=== PATIENT | female | born 1930 | race Caucasian/White ===

== ENCOUNTER 2016-08-04 08:28 | Day surgery (SDC) | payer BC ==
[2016-08-03 10:25] VITALS: BMI 20.9
[~2016-08-04 08:28] MED LIST: ACETAMINOPHEN 325 MG TABLET (FP) PO PRN
[2016-08-04] MEDS ORDERED: FLURBIPROFEN 0.03% OPHTH SOLN 2.5 ML BOTTLE ONE (08:39)
[2016-08-04] MEDS ORDERED: CYCLOPENTOLATE HCL 1% OPHTH SOLN 2 ML BOTTLE ONE (08:40)
[2016-08-04] MEDS ORDERED: TROPICAMIDE 1% OPHTH SOLN 15 ML BOTTLE ONE (08:40)
[2016-08-04] MEDS ORDERED: CIPROFLOXACIN 0.3% EYE DROPS 5 ML BOTTLE ONE (08:40)
[2016-08-04] MEDS ORDERED: PHENYLEPHRINE 2.5% OPHTH SOLN 15 ML BOTTLE ONE (08:40)
[2016-08-04] MEDS: CIPROFLOXACIN HCL 0.3% OPHTH 2.5ML BOTTLE OP SCH ×3 (08:45→08:55)
[2016-08-04] MEDS: CYCLOPENTOLATE HCL 1% OPHTH SOLN 2 ML BOTTLE OP SCH ×3 (08:45→08:55)
[2016-08-04] MEDS: PHENYLEPHRINE 2.5% OPHTH SOLN 15 ML BOTTLE OP SCH ×3 (08:45→08:55)
[2016-08-04] MEDS: TROPICAMIDE 1% OPHTH SOLN 15 ML BOTTLE OP SCH ×3 (08:45→08:55)
[2016-08-04] MEDS: FLURBIPROFEN 0.03% OPHTH SOLN 2.5 ML BOTTLE OP SCH ×3 (08:50→09:21)
[2016-08-04 09:10] VITALS: TEMP 97.9
[2016-08-04] MEDS ORDERED: MIDAZOLAM HCL 2 MG/2 ML SINGLE DOSE VIAL ONE (09:45)
[2016-08-04] MEDS ORDERED: LIDOCAINE HCL 2% JELLY (5 ML/TUBE) TP ONE (09:50)
[2016-08-04] MEDS ORDERED: POVIDONE-IODINE 5% OPHTHALMIC PREP 30 ML SOLUTION OD ONE (10:15)
[2016-08-04] MEDS ORDERED: EPINEPHrine/PF 1 MG/1 ML (1:1,000) AMPULE IO ONE (10:24)
[2016-08-04] MEDS ORDERED: TRYPAN BLUE 0.5 ML DISP.SYRIN IO ONE (10:24)
[2016-08-04] MEDS ORDERED: CHONDROITIN SU A/HYALUR SOD 1 KIT IO ONE (10:24)
[2016-08-04] MEDS ORDERED: BSS (NA/CA/MG/K) BALANCED SALT SOLUTION OPHTH SOLN 15 ML BOTTLE OD ONE (10:24)
[2016-08-04] MEDS ORDERED: LIDOCAINE HCL 1% PRESERVATIVE FREE - 30ML VIAL IO ONE (10:24)
[2016-08-04 11:49] VITALS: BP 147/75; PULSE 95
--- NOTE | 2016-08-04 12:13 | OP ---
DATE OF OPERATION: 08/04/2016 SURGEON: Jeri Barber M.D. PREOPERATIVE DIAGNOSIS: Mature cataract, right eye. POSTOPERATIVE DIAGNOSIS: Mature cataract, right eye. PROCEDURE: Phacoemulsification of right cataract with capsular staining with Trypan blue and posterior chamber intraocular lens implantation, lens used [id number], 22.0 Diopter power, Serial No. [id number] ANESTHESIA: Topical MAC. COMPLICATIONS: None. DESCRIPTION OF PROCEDURE: The patient was brought to the operating room and correctly identified along with the operative site as well as correct intraocular lens reardon. She was then prepped and draped in the usual sterile fashion including 5% Betadine solution in the conjunctival sac and an eyelid drape. An eyelid speculum was then placed into the right eye. The cataract was inspected and noted to be white with a very poor red reflex. A paracentesis port was created. Intracameral Lidocaine 1% was given, approximately 0.5 mL. Then, an air bubble was placed in the anterior chamber, and the capsule was then stained with Trypan blue. The air bubble was removed, the remaining was preservative-free lidocaine. Viscoelastic was injected to inflate the anterior chamber, and a temporal clear corneal wound was created. A continuous circular capsulorrhexis was performed. The nucleus was then hydro-dissected with BSS. The cortex was noted to be very milky. The nucleus was then removed using phacoemulsification via fvolni-rot-tvgnypc approach. Once again there was very little residual epinuclear/cortical material, but care was made to crack the nucleus safely despite this. The remaining cortical material was irrigated and aspirated from the eye. Viscoelastic was injected to inflate the capsular bag. The lens was injected into the capsular bag. Viscoelastic was removed from the eye. All wounds were then tested and found to be watertight, and no further suture was placed. The intraocular lens was noted to be well centered and covered by the anterior capsular border. Topical vancomycin was given. The eye was patched and shielded, and the patient was discharged from the operating room in stable condition JERI BARBER M.D. [id number] MTDD
== END 2016-08-04 11:49 | disposition home or self-care (01) ==
LOC: JASU-SURG 08:28
PROVIDERS: ATTEND Ophthalmology
PROC: 08RJ3JZ Replacement of Right Lens with Synthetic Substitute, Percutaneous Approach (ICD-10-PCS; principal; 2016-08-04 10:00)
DX: H25.091 Other age-related incipient cataract, right eye (principal); H18.891 Other specified disorders of cornea, right eye

== ENCOUNTER 2016-08-10 11:21 | Emergency (ER) | payer BC ==
[2016-08-10 11:38] VITALS: BMI 20.9
--- NOTE | 2016-08-10 11:45 | PDOC ---
History of Present Illness - General History Source: Patient, Family, Old Records, Primary Care Provider Exam Limitations: No Limitations - History of Present Illness Initial Comments: 08/10/16 12:43 The patient is a 86 year old female presenting with her family, with a significant past medical history of chronic low back pain, who presents to the emergency department with exacerbation of her lower back pain. The patient was sent in by her PMD for evaluation. She describes her pain as localized in the lower back, moderate in severity, without radiation. She states that her pain is exacerbated when she moves around. The patient denies chest pain, shortness of breath, headache and dizziness. Denies fever, chills, nausea, vomit, diarrhea and constipation. Denies dysuria, frequency, urgency and hematuria. Allergies: Oxycodone, penicillin, fentanyl patch Past surgical history: Small bowel obstruction, KYPHOPLASTY X2, appendectomy and left hip surgery Social history: No alcohol, tobacco or drug use reported PMD - Dr. Segura <Vaughn Saxena - Last Filed: 08/10/16 13:23> <Vy Guadarrama - Last Filed: 08/10/16 13:56> - General Chief Complaint: Back Pain Stated Complaint: BACK PAIN Time Seen by Provider: 08/10/16 11:35 Past History <Vaughn Saxena - Last Filed: 08/10/16 13:23> - Past Medical History Anemia: Yes (pernicious) COPD: Yes (USES OXYGEN AT HOME 2L) HTN: Yes (LOW BLOOD PRESSURE) Hypercholesterolemia: Yes - Surgical History Abdominal Surgery: Yes (sbo) Appendectomy: Yes Cardiac Surgery: No Cholecystectomy: No Lung Surgery: No Neurologic Surgery: Yes (KYPHOPLASTY X2) Orthopedic Surgery: Yes (L. Hip) - Psycho/Social/Smoking Cessation Hx Anxiety: No Suicidal Ideation: No Smoking History: Former smoker Have you smoked in the past 12 months: No Number of Cigarettes Smoked Daily: 5 If you are a former smoker, when did you quit?: 2014 Information on smoking cessation initiated: No 'Breaking Loose' booklet given: 09/13/13 Hx Alcohol Use: No Drug/Substance Use Hx: No Substance Use Type: None Hx Substance Use Treatment: No <Vy Guadarrama - Last Filed: 08/10/16 13:56> - Past Medical History Allergies/Adverse Reactions: Allergies Allergy/AdvReac Type Severity Reaction Status Date / Time oxycodone Allergy Intermediate PASSING OUT Verified 08/10/16 11:40 Penicillins Allergy Verified 08/10/16 11:40 FENTANYL PATCH Allergy Intermediate PASSING OUT Uncoded 08/10/16 11:40 Home Medications: Ambulatory Orders Acetaminophen [Tylenol .Regular Strength -] 650 mg PO Q6H PRN #100 tablet Cholecalciferol (Vitamin D3) [Vitamin D3] 1,000 unit PO DAILY #0 09/21/13 Cyanocobalamin Vit B-12 Inj. [Vitamin B12 Injection -] 1,000 mcg IJ MONTHLY #0 09/21/13 Folic Acid - 1 mg PO DAILY #0 09/21/13 Omeprazole [Prilosec] 40 mg PO DAILY #0 09/21/13 Albuterol 2.5/Ipratropium 0.5 [Duoneb -] 1 amp NEB QIDR amp 05/09/15 Loperamide HCl [Imodium -] 2 mg PO Q8H PRN #0 capsule 05/09/15 Amlodipine Besylate 5 mg PO DAILY 08/03/16 Spironolactone 25 mg PO DAILY 08/03/16 Ketorolac Trometh 0.5% Oph Katarina [Acular (Do Not Stock)] 1 drop OD QID 08/10/16 Ofloxacin 0.3% Ophth Soln [Ocuflox 0.3% Eye Drops -] 1 drop OD QID 08/10/16 Oxycodone HCl/Acetaminophen [Percocet 5-325 mg Tablet] 1 tab PO Q6H PRN #12 tablet MDD 4 tabs 08/10/16 Prednisolone 1% Ophthalmic [Pred Forte 1% -] 1 drop OD QID 08/10/16 Review of Systems - Review of Systems Able to Perform ROS?: Yes Comments:: 08/10/16 12:43 GENERAL/CONSTITUTIONAL: No fever or chills. No weakness. HEAD, EYES, EARS, NOSE AND THROAT: No change in vision. No ear pain or discharge. No sore throat. CARDIOVASCULAR: No chest pain or shortness of breath RESPIRATORY: No cough, wheezing, or hemoptysis. GASTROINTESTINAL: No nausea, vomiting, diarrhea or constipation. GENITOURINARY: No dysuria, frequency, or change in urination. MUSCULOSKELETAL: +Lower back pain. No joint or muscle swelling or pain. No neck pain. SKIN: No rash NEUROLOGIC: No headache, vertigo, loss of consciousness, or change in strength/ sensation. ENDOCRINE: No increased thirst. No abnormal weight change HEMATOLOGIC/LYMPHATIC: No anemia, easy bleeding, or history of blood clots. ALLERGIC/IMMUNOLOGIC: No hives or skin allergy. HEENTM: Yes: Nose Pain <Vaughn Saxena - Last Filed: 08/10/16 13:23> *Physical Exam - Vital Signs Last Vital Signs Temp Pulse Resp BP Pulse Ox 98 F 84 18 159/76 98 08/10/16 11:33 08/10/16 11:33 08/10/16 11:33 08/10/16 11:08/10/16 12:00 - Physical Exam Comments: 08/10/16 12:43 GENERAL: Awake, alert, and fully oriented, in no acute distress HEAD: No signs of trauma, normocephalic, atraumatic EYES: PERRLA, EOMI, sclera anicteric, conjunctiva clear ENT: Auricles normal inspection, hearing grossly normal, nares patent, oropharynx clear without exudates. Moist mucosa NECK: Normal ROM, supple, no lymphadenopathy, JVD, or masses LUNGS: No distress, speaks full sentences, clear to auscultation bilaterally HEART: Regular rate and rhythm, normal S1 and S2, no murmurs, rubs or gallops, peripheral pulses normal and equal bilaterally. ABDOMEN: Soft, nontender, normoactive bowel sounds. No guarding, no rebound. No masses MUSCULOSKELETAL: +Tenderness at L2-L3, wearing a lidadorm patch, underneath no skin chagnes. EXTREMITIES: Normal inspection, Normal range of motion, no edema. No clubbing or cyanosis. NEUROLOGICAL: Cranial nerves II through XII grossly intact. Normal speech, no focal sensorimotor deficits SKIN: Warm, Dry, normal turgor, no rashes or lesions noted. <Vaughn Saxena - Last Filed: 08/10/16 13:23> - Vital Signs Last Vital Signs Temp Pulse Resp BP Pulse Ox 98 F 84 18 159/76 100 08/10/16 11:33 08/10/16 11:33 08/10/16 11:33 08/10/16 11:33 08/10/16 11:33 <Vy Guadarrama - Last Filed: 08/10/16 13:56> ED Treatment Course - LABORATORY CBC & Chemistry Diagram: 08/10/16 12:25 08/10/16 12:25 - RADIOLOGY Radiograph Interpretation: 08/10/16 13:23 Lumbar sacral X-Ray Reviewed by: Dr. Ho Impression: Stable compression deformity of L1 with cement, Stable compression deformity of L3. Concavity of the endplates of L4 without specific evidence of acute fracture. - Medications Given in the ED: ED Medications Discontinued Medications Generic Name Dose Route Start Last Admin Trade Name Freq PRN Reason Stop Dose Admin Oxycodone/Acetaminophen 1 combo 08/10/16 11:57 08/10/16 12:09 Percocet 5/325 - PO 08/10/16 11:58 1 combo ONCE ONE Administration <Vaughn Saxena - Last Filed: 08/10/16 13:23> - LABORATORY CBC & Chemistry Diagram: 08/10/16 12:25 08/10/16 12:25 <yV Guadarrama - Last Filed: 08/10/16 13:56> Medical Decision Making - Medical Decision Making 08/10/16 13:39 D/w Dr. Segura, will arrange for outpatient MRI, so that patient can have it in upright MRI (she is unable to lie flat for MRI or CT). 08/10/16 13:46 Left VM for her son to pick her up. I have written rx for percocet. Will cont to monitor while awaiting callback. 08/10/16 13:56 Received callback from son. He will pick her up shortly. <Vy Guadarrama - Last Filed: 08/10/16 13:56> *DC/Admit/Observation/Transfer - Attestations Scribe Attestion: 08/10/16 12:44 Documentation prepared by Vaughn Saxena, acting as medical dermatologist for Vy Guadarrama MD <Vaughn Saxena - Last Filed: 08/10/16 13:23> - Discharge Dispostion Admit: No <Vy Guadarrama - Last Filed: 08/10/16 13:56> Diagnosis at time of Disposition: Back pain Qualifiers: Back pain location: low back pain Chronicity: acute Back pain laterality: midline Sciatica presence: without sciatica Qualified Code(s): M54.5 - Low back pain - Discharge Dispostion Disposition: HOME Condition at time of disposition: Improved - Prescriptions Prescriptions: Oxycodone HCl/Acetaminophen [Percocet 5-325 mg Tablet] 1 tab PO Q6H PRN #12 tablet MDD 4 tabs PRN Reason: Severe Pain - Referrals Referrals: Colin Segura MD [Primary Care Provider] - - Patient Instructions Printed Discharge Instructions: DI for Low Back Pain
[2016-08-10] MEDS ORDERED: OXYCODONE/APAP 5/325MG COMBO TABLET PO ONE (11:57)
[2016-08-10] MEDS ORDERED: OXYCODONE/APAP 5/325MG COMBO TABLET ONE (12:03)
[2016-08-10] MEDS ORDERED: OFLOXACIN 0.3% OPHTHALMIC SOLUTION 5 ML BOTTLE OD SCH (12:15)
[2016-08-10] MEDS ORDERED: prednisoLONE ACETATE 1% OPHTH SUSP 5 ML BOTTLE OD SCH (12:15)
[2016-08-10 12:41] LABS: BASOPHIL 0.4 % (0-2.0); EOSINOPHIL 0.3 % (0-4.5); MCH 30.6 pg (25.7-33.7); MCHC 33.4 g/dl (32.0-36.0); MEAN CELL VOLUME 91.6 fl (80-96); MEAN PLT VOLUME 8.1 fl (7.5-11.1); NEUTROPHILS 76.8 % (42.8-82.8); PLATELET COUNT 248 K/MM3 (134-434); RDW 14.5 % (11.6-15.6); WHITE BLOOD COUNT 6.7 K/mm3 (4.0-10.0)
[2016-08-10 13:07] LABS: ALBUMIN 3.5 g/dl (3.4-5.0); ALK PHOS 68 U/L (45-117); ANION GAP 8 (8-16); BILIRUBIN,TOTAL 0.5 mg/dL (0.2-1.0); CALCIUM 8.8 mg/dL (8.5-10.1); CO2 29 mmol/L (21-32); COCKROFT - GAULT 48.1865; CREATININE 0.6 mg/dL (0.55-1.02); GLUCOSE,RANDOM 103 mg/dL (74-106); SGOT/AST 18 U/L (15-37); SGPT/ALT 18 U/L (12-78); TOT PROT 7.2 g/dl (6.4-8.2)
[2016-08-10 14:47] VITALS: BP 123/59; PULSE 73; TEMP 98
== END 2016-08-10 14:47 | disposition home or self-care (01) ==
LOC: JER 11:21
DX: M54.5 Low back pain (principal); J44.9 Chronic obstructive pulmonary disease, unspecified; Z99.81 Dependence on supplemental oxygen; Z87.891 Personal history of nicotine dependence; E78.00 Pure hypercholesterolemia, unspecified; D64.9 Anemia, unspecified
CPT/HCPCS: 36415; 72100-TC; 80053; 85025; 99284-25

== ENCOUNTER 2016-09-30 08:35 | Day surgery (SDC) | payer BC ==
[2016-09-29 12:37] VITALS: BMI 20.9
[~2016-09-30 08:35] MED LIST changes: -ACETAMINOPHEN 325 MG TABLET (FP) PO PRN; +CLINDAMYCIN PHOSPHATE 300 MG/2 ML VIAL IVPB ONE
[2016-09-30] MEDS ORDERED: LIDOCAINE HCL 2% 100 MG/5 ML DISP.SYRIN ONE (09:00)
[2016-09-30] MEDS ORDERED: PROPOFOL 20 ML ONE ×5 (09:00→10:06)
[2016-09-30] MEDS ORDERED: SUCCINYLCHOLINE CHLORIDE 200 MG/10 ML VIAL ONE (09:00)
[2016-09-30] MEDS ORDERED: ROCURONIUM BROMIDE 50 MG/5 ML VIAL ONE (09:04)
[2016-09-30] MEDS ORDERED: MIDAZOLAM HCL 2 MG/2 ML SINGLE DOSE VIAL ONE (10:24)
[2016-09-30] MEDS ORDERED: BUPIVACAINE HCL/PF 0.25% (2.5MG/ML) 10 ML VIAL ONE ×2 (10:44→11:08)
[2016-09-30] MEDS ORDERED: CLINDAMYCIN PHOSPHATE 300 MG/2 ML VIAL IVPB ONE (10:46)
[2016-09-30] MEDS ORDERED: CLINDAMYCIN PHOSPHATE 600 MG/4 ML VIAL ONE (11:04)
[2016-09-30] MEDS ORDERED: BUPIVACAINE HCL/PF 0.25% (2.5MG/ML) 10 ML VIAL IJ ONE (11:05)
[2016-09-30 14:53] VITALS: BP 140/70; PULSE 73
[2016-09-30 18:17] VITALS: TEMP 98.4
== END 2016-09-30 14:10 | disposition home or self-care (01) ==
LOC: JASU-SURG 08:35
PROVIDERS: ATTEND Anesthesiology
PROC: 0QU03JZ Supplement Lumbar Vertebra with Synthetic Substitute, Percutaneous Approach (ICD-10-PCS; 2016-09-30)
PROC: 0QS03ZZ Reposition Lumbar Vertebra, Percutaneous Approach (ICD-10-PCS; principal; 2016-09-30 10:00)
DX: M80.88XA Other osteoporosis with current pathological fracture, vertebra(e), initial encounter for fracture (principal)
CPT/HCPCS: 76000-TC; 94760

== ENCOUNTER 2016-12-15 18:08 | Inpatient (IN) | payer BC ==
--- NOTE | 2016-12-15 19:38 | PDOC ---
History of Present Illness <Kevin Whittington - Last Filed: 12/16/16 01:31> - General History Source: Patient Exam Limitations: No Limitations - History of Present Illness Initial Comments: 12/16/16 00:10 The patient is a 86 year old female, with a significant past medical history of arthritis, chronic lower back pain, multiple compression fractures, hypertension , hyperlipidemia, and pancreatic ulcers, who presents to the emergency department complaining of lower back pain exacerbation for approximately 6 days. The patient reports she was reaching to dust something several days ago and shortly after she began to experience worsening lower back pain. The patient describes her pain as a sharp pressure, which radiates into her right lower abdomen. Per patient's son, he was going to bring her to her pain management physician, but the patient was in so much pain that he could not get her to the car. Patient reports she spends the majority of her day in a wheelchair due to pain, but attends PT. Patient is on approximately 2 percocets daily, with minimal relief. The patient states she feels as if she has another fracture. She denies any nausea, vomiting, diarrhea, or constipation. She denies any chest pain, shortness of breath, diaphoresis, or palpitations. She denies any dysuria, hematuria, frequency, or urgency. She denies any fever, chills, headache, or dizziness. Per records, patient has had a stable compression deformity of L1, L3, and L4. Allergies: Penicillins, oxycodone, [fentanyl patch] Past Surgical History: Kyphoplasty of L1/L3/L4, Appendectomy, Left Hip replacement, Small bowel obstruction Social History: Former Smoker PCP: Dr. Segura <Gonzalo Evans - Last Filed: 12/16/16 01:44> - General Chief Complaint: Back Pain Stated Complaint: PAIN Time Seen by Provider: 12/15/16 19:38 Past History - Past Medical History Anemia: Yes (pernicious) COPD: Yes (USES OXYGEN AT HOME 2L) HTN: Yes (LOW BLOOD PRESSURE) Hypercholesterolemia: Yes - Surgical History Abdominal Surgery: Yes (sbo years ago) Appendectomy: Yes Cardiac Surgery: No Cholecystectomy: No Lung Surgery: No Neurologic Surgery: Yes (KYPHOPLASTY X2) Orthopedic Surgery: Yes (L. Hip replacement pinning/plate) - Psycho/Social/Smoking Cessation Hx Anxiety: No Suicidal Ideation: No Smoking History: Former smoker Have you smoked in the past 12 months: No Number of Cigarettes Smoked Daily: 5 If you are a former smoker, when did you quit?: 2014 Information on smoking cessation initiated: No 'Breaking Loose' booklet given: 09/13/13 Hx Alcohol Use: No Drug/Substance Use Hx: No Substance Use Type: None Hx Substance Use Treatment: No <Kevin Whittington - Last Filed: 12/16/16 01:31> <Gonzalo Evans - Last Filed: 12/16/16 01:44> - Past Medical History Allergies/Adverse Reactions: Allergies Allergy/AdvReac Type Severity Reaction Status Date / Time oxycodone Allergy Intermediate PASSING OUT Verified 12/15/16 18:16 Penicillins Allergy Verified 12/15/16 18:16 FENTANYL PATCH Allergy Intermediate PASSING OUT Uncoded 12/15/16 18:16 Home Medications: Ambulatory Orders Acetaminophen [Tylenol .Regular Strength -] 650 mg PO Q6H PRN #100 tablet Cholecalciferol (Vitamin D3) [Vitamin D3] 1,000 unit PO DAILY #0 09/21/13 Cyanocobalamin Vit B-12 Inj. [Vitamin B12 Injection -] 1,000 mcg IJ MONTHLY #0 09/21/13 Folic Acid - 1 mg PO DAILY #0 09/21/13 Albuterol 2.5/Ipratropium 0.5 [Duoneb -] 1 amp NEB QIDR amp 05/09/15 Amlodipine Besylate 5 mg PO DAILY 08/03/16 Spironolactone 25 mg PO DAILY 08/03/16 Oxycodone HCl/Acetaminophen [Percocet 5-325 mg Tablet] 1 tab PO Q6H PRN #12 tablet MDD 4 tabs 08/10/16 Omeprazole [Prilosec] 20 mg PO DAILY 12/15/16 Review of Systems - Review of Systems Able to Perform ROS?: Yes Comments:: 12/16/16 00:11 CONSTITUTIONAL: No fever, no chills, no fatigue EYES: No visual changes ENT: No ear pain, no sore throat CARDIOVASCULAR: No chest pain, no palpitations RESPIRATORY: No cough, no SOB GI: Yes: +mild abdominal pain secondary to back pain. No no nausea, no vomiting , no constipation, no diarrhea GENITOURINARY: No dysuria, no frequency, no hematuria MUSKULOSKELETAL: Yes: +lower back pain. Nono joint pain, no myalgias SKIN: No rash NEURO: No headache <Gonzalo Evans - Last Filed: 12/16/16 01:44> *Physical Exam - Vital Signs Last Vital Signs Temp Pulse Resp BP Pulse Ox 98.2 F 86 20 163/79 100 12/15/16 18:17 12/15/16 18:17 12/15/16 18:17 12/15/16 18:17 12/15/16 18:17 <Kevin Whittington - Last Filed: 12/16/16 01:31> - Vital Signs Last Vital Signs Temp Pulse Resp BP Pulse Ox 98.2 F 86 20 163/79 100 12/15/16 18:17 12/15/16 18:17 12/15/16 18:17 12/15/16 18:17 12/15/16 18:17 - Physical Exam Comments: 12/16/16 00:49 CONSTITUTIONAL: Well-appearing; Awake and alert. Frail appearing in moderate distress HEAD: Normocephalic; atraumatic EYES: PERRL; EOM intact ENMT: External appears normal; normal oropharynx NECK: Supple; non-tender; no cervical lymphadenopathy CARD: 2/6 systolic murmur. Normal S1, S2; no rubs or gallops RESP: Normal chest excursion with respiration; breath sounds clear and equal bilaterally; no wheezes, rhonchi, or rales BACK: Significant scoliosis. Point tenderness at T11-L4. ABD: Soft, non-distended; non-tender; no palpable organomegaly, no palpable hernias EXT: +1 Pitting edema bilaterally, left greater than right. Distal pulses intact SKIN: Warm, dry, no rash NEURO: Awake, alert, and fully oriented. Cranial nerves II through XII grossly intact. Normal speech. No focal neurological deficits. Neurovascularly intact distally. Gait deferred. <EvansTrinityyousif - Last Filed: 12/16/16 01:44> ED Treatment Course - LABORATORY CBC & Chemistry Diagram: 12/15/16 20:00 12/15/16 20:00 <Kevin Whittington - Last Filed: 12/16/16 01:31> - LABORATORY CBC & Chemistry Diagram: 12/15/16 20:00 12/15/16 20:00 - ADDITIONAL ORDERS Additional order review: Laboratory Results 12/15/16 12/15/16 20:00 20:00 INR 1.16 H Sodium 136 Potassium 3.8 Chloride 97 L Carbon Dioxide 30 Anion Gap 9 BUN 16 D Creatinine 0.4 L D Creat Clearance w eGFR > 60 Random Glucose 127 H D Calcium 9.3 Total Bilirubin 0.4 AST 18 ALT 17 Alkaline Phosphatase 67 Total Protein 6.8 Albumin 3.4 12/15/16 20:00 RBC 4.09 MCV 92.4 MCHC 33.5 RDW 14.1 MPV 8.2 Neutrophils % 75.7 Lymphocytes % 13.7 Monocytes % 9.8 Eosinophils % 0.5 Basophils % 0.3 - RADIOLOGY Radiograph Interpretation: 12/16/16 00:51 EXAM: CT lumbar spine INTERPRETED BY: Dr. Hogue REVIEWED BY: Dr. Whittington IMPRESSION: Multiple compression fractures with vertebroplasty, as described above. There is mild bulge of L4 posterior/superior margin resulting in mild to moderate canal stenosis. Over distended gallbladder with a 1.5 cm stone at the level of the neck. Partially included cystic density in the lower pelvis likely part of the urinary bladder. Distal sigmoid moderate amount of fecal residue suggestive of constipation/impaction - Medications Given in the ED: ED Medications Discontinued Medications Generic Name Dose Route Start Last Admin Trade Name Freq PRN Reason Stop Dose Admin Hydromorphone HCl 0.5 mg 12/15/16 19:55 12/15/16 20:10 Dilaudid Injection - IVPB 12/15/16 19:56 0.5 mg ONCE ONE Administration Hydromorphone HCl 0.5 mg 12/15/16 20:36 12/15/16 21:27 Dilaudid Injection - IVPB 12/15/16 20:37 0.5 mg ONCE ONE Administration Hydromorphone HCl 0.5 mg 12/15/16 21:54 12/15/16 22:18 Dilaudid Injection - IVPB 12/15/16 21:55 0.5 mg ONCE ONE Administration <Gonzalo Evans - Last Filed: 12/16/16 01:44> Medical Decision Making - Medical Decision Making 12/16/16 01:31 Patient is a frail-appearing 86-year-old female with history of the severe osteoporosis, status post multiple compression fractures of thoracic and lumbar vertebra with kyphoplasty presents to the ER with severe intractable low back pain that is nonradiating and is not effectively controlled by oral narcotic pain medication prescribed by pain management. In the ER, patient is in moderate distress, requiring numerous doses of IV dilouded for pain control. CT of LS spine reveals chronic compression fractures of multiple vertebra with kyphoplasty cement; distended gallbladder with a 1.5 cm stone is noted (patient' s symptoms are not consistent with acute cholecystitis at this time); there is no evidence of cauda equina or cord compression at this time. Patient will require admission for intractable pain, requiring IV narcotics. Will admit. <Kevin Whittington - Last Filed: 12/16/16 01:31> - Medical Decision Making 12/16/16 00:14 First call placed to Dr. Segura at 00:14. Awaiting call back from Dr. Cruz. <Gonzalo Evans - Last Filed: 12/16/16 01:44> *DC/Admit/Observation/Transfer - Discharge Dispostion Admit: Yes - Attestations Physician Attestion: 12/16/16 01:31 The documentation was prepared by the scribe under my direct supervision. I have reviewed the documentation which correctly represents the findings, medical decision-making and critical action taken by me. <Kevin Whittington - Last Filed: 12/16/16 01:31> - Attestations Scribe Attestion: 12/16/16 00:11 Documentation prepared by Gonzalo Evans, acting as medical billing specialist for Kevin Whittington MD. <Gonzalo Evans - Last Filed: 12/16/16 01:44> Diagnosis at time of Disposition: Intractable low back pain, Compression fracture - Referrals Referrals: Colin Segura MD [Primary Care Provider] -
[2016-12-15] MEDS ORDERED: HYDROmorphone HCL CARPU-JECT 1 MG/1 ML DISP.SYRIN IVPB ONE ×3 (19:55→21:54)
[2016-12-15] MEDS ORDERED: HYDROmorphone HCL CARPU-JECT 1 MG/1 ML DISP.SYRIN ONE ×3 (20:02→22:00)
[2016-12-15 20:29] LABS: BASOPHIL 0.3 % (0-2.0); EOSINOPHIL 0.5 % (0-4.5); MCHC 33.5 g/dl (32.0-36.0); MEAN CELL VOLUME 92.4 fl (80-96); MEAN PLT VOLUME 8.2 fl (7.5-11.1); NEUTROPHILS 75.7 % (42.8-82.8); PLATELET COUNT 235 K/MM3 (134-434); RDW 14.1 % (11.6-15.6); WHITE BLOOD COUNT 5.8 K/mm3 (4.0-10.0)
[2016-12-15 20:51] LABS: INR 1.16 (0.82-1.09); PROTHROMBIN TIME (PATIENT) 12.8 SEC (9.98-11.88)
[2016-12-15 21:02] LABS: ALBUMIN 3.4 g/dl (3.4-5.0); ALK PHOS 67 U/L (45-117); ANION GAP 9 (8-16); BILIRUBIN,TOTAL 0.4 mg/dL (0.2-1.0); CALCIUM 9.3 mg/dL (8.5-10.1); CO2 30 mmol/L (21-32); CREATININE 0.4 mg/dL (0.55-1.02); GLUCOSE,RANDOM 127 mg/dL (74-106); SGOT/AST 18 U/L (15-37); TOT PROT 6.8 g/dl (6.4-8.2)
[2016-12-15 21:09] LABS: SGPT/ALT 17 U/L (12-78)
[2016-12-16] MEDS ORDERED: HYDROmorphone HCL CARPU-JECT 1 MG/1 ML DISP.SYRIN IVPB ONE (00:36)
[2016-12-16] MEDS ORDERED: HYDROmorphone HCL CARPU-JECT 1 MG/1 ML DISP.SYRIN ONE (00:45)
[2016-12-16] MEDS ORDERED: ACETAMINOPHEN 325 MG TABLET (FP) PO PRN (02:24)
[2016-12-16] MEDS: ENOXAPARIN NA (PORCINE) 40 MG/0.4 ML DISP.SYRIN SQ SCH ×3 (03:10→21:56)
[2016-12-16] MEDS ORDERED: ENOXAPARIN NA (PORCINE) 40 MG/0.4 ML DISP.SYRIN SQ ONE (03:11)
--- NOTE | 2016-12-16 04:21 | PN ---
Teaching Attending Note Name of Resident: Paula Kramer ATTENDING PHYSICIAN STATEMENT I saw and evaluated the patient. I reviewed the resident's note and discussed the case with the resident. I agree with the resident's findings and plan as documented. SUBJECTIVE: 86 year old female that presents complaining of intractible lower back pain x 6 days triggered by leaning over to sweep floors. She has a history of chronic back pain and kyphoplasty and is seen on outpatient basis by pain management physician . Her regular prescribed narcotic medications did not aleviate the pain so she presented for further evaluation . Pain is 10/10 and is radiating to the right side of her abdomen PMH chronic back pain Lumbar spine compression fractures and kyphoplasty Arthritis HTN Hyperlipidemia Appendectomy OBJECTIVE: Vital Signs Temperature 98.2 F 12/15/16 18:17 Pulse Rate 83 12/16/16 03:19 Respiratory Rate 18 12/16/16 03:19 Blood Pressure 148/81 12/16/16 03:19 O2 Sat by Pulse Oximetry (%) 98 12/16/16 03:19 HEENT - Perrl CVS S1S@ WNL no mrg RS CTA b/l ABD mild lower abdominal tenderness no rebound , scales neg EXT LLE edema non pitting up to the level of knee CMP Sodium 136 mmol/L (136-145) 12/15/16 20:00 Potassium 3.8 mmol/L (3.5-5.1) 12/15/16 20:00 Chloride 97 mmol/L (98-107) L 12/15/16 20:00 Carbon Dioxide 30 mmol/L (21-32) 12/15/16 20:00 Anion Gap 9 (8-16) 12/15/16 20:00 BUN 16 mg/dL (7-18) D 12/15/16 20:00 Creatinine 0.4 mg/dL (0.55-1.02) L D 12/15/16 20:00 Creat Clearance w eGFR > 60 (>60) 12/15/16 20:00 Random Glucose 127 mg/dL (74-106) H D 12/15/16 20:00 Calcium 9.3 mg/dL (8.5-10.1) 12/15/16 20:00 Total Bilirubin 0.4 mg/dL (0.2-1.0) 12/15/16 20:00 AST 18 U/L (15-37) 12/15/16 20:00 ALT 17 U/L (12-78) 12/15/16 20:00 Alkaline Phosphatase 67 U/L (45-117) 12/15/16 20:00 Total Protein 6.8 g/dl (6.4-8.2) 12/15/16 20:00 Albumin 3.4 g/dl (3.4-5.0) 12/15/16 20:00 The gallbladder is markedly over distended with a gallbladder neck stone measuring 1.4 cm. Partially included moderate amount of fecal residue in the distal sigmoid colon suggestive of constipation. Rule out impaction. Partially included cystic density in the lower pelvis measuring 4.5 cm that may be part of the urinary bladder. There are a few diverticula in the sigmoid colon without evidence of acute diverticulitis. Air-fluid level in the cecum suggestive of liquefied stool Multiple compression fractures with vertebroplasty. There is mild bulge of L4 posterior/superior margin resulting in mild to moderate canal stenosis. Over distended gallbladder with a 1.5 cm stone at the level of the neck. Partially included cystic density in the lower pelvis likely part of the urinary bladder. Distal sigmoid moderate amount of fecal residue suggestive of constipation/ impaction ASSESSMENT AND PLAN: 1. Intractible lumbar back painand canal stenosis- not relieved with narcotics IV in the ED - hospitalize for pain control , IV dilaudid for brakthrough pain - c/w home meds - baclofen PRN 2. Abnormal imaging of gallblader suggestive of possible biiary obstruction - no evidence of acute cholecystitis at this time ( on CT ) - repeat LFT - if abnormal , or has RUQ pain will need to obtain [facility] EF to evaluate degree of obstruction - if needed will call surgery 3. LLE swelling - will obtain dopplers to R/O DVT 4. DVT PPX - heparin sc
--- NOTE | 2016-12-16 05:16 | HP ---
CHIEF COMPLAINT: back pain PCP: Dr. Oreilly HISTORY OF PRESENT ILLNESS: 86yo F with PMH of chronic lower back pain, arthritis, osteoporosis with multiple compression fractures, and COPD presents c/o acute on chronic back pain. Pain began worsening 6 days ago after pt bent over to dust. Pt took her usual home pain medication of Percocet BID, but this did not relieve her pain. Pt describes pain as sharp, exacerbated with movement, radiating into lateral RLQ of abdomen. Pt reported that she thought she had another compression fracture. Pt denies chest pain, SOB, dizziness. ER course was notable for: (1) CT Lumbar Spine (2) Dilaudid 0.5mg IVPB x 4, Percocet 5/325 PO x 1 (3) CXR pending PAST MEDICAL HISTORY: arthritis osteoporosis multiple compression fractures with kyphoplasty chronic back pain COPD with 2L O2 via nasal cannula HTN hyperlipidemia pancreatic ulcer pernicious anemia PAST SURGICAL HISTORY: kyphoplasty of L1/L3/L4 2 mo ago Left eye cataract surgery 2 mo ago Left hip replacement abdominal surgery for SBO appendectomy Social History: Smoking: former smoker -> 5 cigarettes / day, quit in 2014 Alcohol: none Drugs: none Allergies oxycodone Allergy (Intermediate, Verified 12/15/16 18:16) PASSING OUT Penicillins Allergy (Verified 12/15/16 18:16) FENTANYL PATCH Allergy (Intermediate, Uncoded 12/15/16 18:16) PASSING OUT HOME MEDICATIONS: Home Medications Medication Instructions Recorded Acetaminophen [Tylenol .Regular 650 mg PO Q6H PRN #100 tablet 09/21/13 Strength -] Cholecalciferol (Vitamin D3) 1,000 unit PO DAILY #0 09/21/13 [Vitamin D3] Cyanocobalamin Vit B-12 Inj. 1,000 mcg IJ MONTHLY #0 09/21/13 [Vitamin B12 Injection -] Folic Acid - 1 mg PO DAILY #0 09/21/13 Albuterol 2.5/Ipratropium 0.5 1 amp NEB QIDR amp 05/09/15 [Duoneb -] Amlodipine Besylate 5 mg PO DAILY 08/03/16 Spironolactone 25 mg PO DAILY 08/03/16 Oxycodone HCl/Acetaminophen 1 tab PO Q6H PRN #12 tablet MDD 4 08/10/16 [Percocet 5-325 mg Tablet] tabs Omeprazole [Prilosec] 20 mg PO DAILY 12/15/16 REVIEW OF SYSTEMS CONSTITUTIONAL: Absent: fever, chills, diaphoresis, malaise HEENT: Absent: throat pain, ear pain, eye pain, visual changes CARDIOVASCULAR: Absent: chest pain, palpitations, irregular heart rate RESPIRATORY: Absent: cough, shortness of breath, wheezing, stridor GASTROINTESTINAL: Present: lateral RLQ pain 2/2 back pain Absent: abdominal distension, nausea, vomiting, diarrhea, constipation GENITOURINARY: Absent: dysuria, frequency, hematuria MUSCULOSKELETAL: Present: lower back pain Absent: myalgia, arthralgia, joint swelling, neck pain SKIN: Absent: rash, itching, pallor NEUROLOGIC: Absent: headache, focal weakness or paresthesias PHYSICAL EXAMINATION Last Vital Signs Temp Pulse Resp BP Pulse Ox 98.2 F 83 18 148/81 98 12/15/16 18:17 12/16/16 03:19 12/16/16 03:19 12/16/16 03:19 12/16/16 03:19 GENERAL: Awake, alert, and fully oriented, frail appearing elderly woman in moderate distress. HEAD: Normal with no signs of trauma. EYES: Extraocular movements intact, sclera anicteric, conjunctiva clear. No lid lag. EARS, NOSE, THROAT: Moist mucous membranes. NECK: Supple, trachea midline. LUNGS: difficult to auscultate 2/2 pt's restricted movement related to her back pain. Breath sounds equal, clear to auscultation bilaterally. No wheezes, and no crackles. No accessory muscle use. HEART: Regular rate and rhythm, normal S1 and S2 without murmur, rub or gallop. ABDOMEN: (-) scales's sign. Soft, nontender, not distended, normoactive bowel sounds, no guarding, no rebound, no masses. MUSCULOSKELETAL: Pt's movement is severely restricted 2/2 her back pain. Difficult to assess muscle strength. BLE 4/5 muscle strength. LOWER EXTREMITIES: +1 pitting edema to Left LE. Augustin LE warm, with intact pedal pulses. No calf tenderness. NEUROLOGICAL: Augustin achilles reflex intact. Normal speech. PSYCHIATRIC: Cooperative. Good eye contact. Appropriate mood and affect. SKIN: Warm, dry, normal turgor, no rashes or lesions noted. Laboratory Last Values WBC 5.8 K/mm3 (4.0-10.0) 12/15/16 20:00 RBC 4.09 M/mm3 (3.60-5.2) 12/15/16 20:00 Hgb 12.7 GM/dL (10.7-15.3) 12/15/16 20:00 Hct 37.8 % (32.4-45.2) 12/15/16 20:00 MCV 92.4 fl (80-96) 12/15/16 20:00 MCH 31.0 pg (25.7-33.7) 12/15/16 20:00 MCHC 33.5 g/dl (32.0-36.0) 12/15/16 20:00 RDW 14.1 % (11.6-15.6) 12/15/16 20:00 Plt Count 235 K/MM3 (134-434) 12/15/16 20:00 MPV 8.2 fl (7.5-11.1) 12/15/16 20:00 Neutrophils % 75.7 % (42.8-82.8) 12/15/16 20:00 Lymphocytes % 13.7 % (8-40) 12/15/16 20:00 Monocytes % 9.8 % (3.8-10.2) 12/15/16 20:00 Eosinophils % 0.5 % (0-4.5) 12/15/16 20:00 Basophils % 0.3 % (0-2.0) 12/15/16 20:00 INR 1.16 (0.82-1.09) H 12/15/16 20:00 Sodium 136 mmol/L (136-145) 12/15/16 20:00 Potassium 3.8 mmol/L (3.5-5.1) 12/15/16 20:00 Chloride 97 mmol/L (98-107) L 12/15/16 20:00 Carbon Dioxide 30 mmol/L (21-32) 12/15/16 20:00 Anion Gap 9 (8-16) 12/15/16 20:00 BUN 16 mg/dL (7-18) D 12/15/16 20:00 Creatinine 0.4 mg/dL (0.55-1.02) L D 12/15/16 20:00 Creat Clearance w eGFR > 60 (>60) 12/15/16 20:00 Random Glucose 127 mg/dL (74-106) H D 12/15/16 20:00 Calcium 9.3 mg/dL (8.5-10.1) 12/15/16 20:00 Total Bilirubin 0.4 mg/dL (0.2-1.0) 12/15/16 20:00 AST 18 U/L (15-37) 12/15/16 20:00 ALT 17 U/L (12-78) 12/15/16 20:00 Alkaline Phosphatase 67 U/L (45-117) 12/15/16 20:00 Total Protein 6.8 g/dl (6.4-8.2) 12/15/16 20:00 Albumin 3.4 g/dl (3.4-5.0) 12/15/16 20:00 IMAGIN12/15/16 CT Lumbar Spine without contrast reveals multiple compression fractures with vertebroplasty, mild bulge of L4 vertebral body resulting in mild-to- moderate canal stenosis. Over distended gallbladder with a 1.5cm gallstone at the level of the neck noted. 12/16/16 CXR pending. ASSESSMENT/PLAN: 86yo F with PMH of chronic lower back pain, arthritis, osteoporosis with multiple compression fractures, and COPD presents c/o acute on chronic back pain admitted to Med-Surg Observation for intractable back pain. 1) intractable back pain - likely 2/2 arthritic/osteoporotic changes to spine resulting in canal stenosis vs cholecystitis - (-) scales sign, pain associated with movement and not 2/2 eating fatty meals - Dilaudid 1mg IVPB q4hr prn for breakthrough pain over her Percocet - cont. home med of Percocet 5/325 q6hr prn - Baclofen 10mg PO TID prn for muscle spasm pain - incentive spirometry 2) oxycodone allergy - likely not a true allergy as pt tolerates Percocet 3) Left LE edema - f/u Duplex US 4) HTN - likely 2/2 increased pain - cont. home med of Amlodipine 5mg PO daily 5) COPD - cont. home meds of Duoneb 1 amp neb QID - cont. 2L O2 via nasal cannula 6) Advanced Directives - Pt wants to be made DNR (she does not want chest compressions done for fear of additional fractures) - Day Team to f/u 7) FEN - Fluids: encourage po fluids - Electrolytes: wnl, cont. to monitor - Nutrition: regular diet 8) Prophylaxis - Lovenox 40mg SQ BID for DVT prophylaxis Visit type - Emergency Visit Emergency Visit: Yes ED Registration Date: 12/16/16 Care time: The patient presented to the Emergency Department on the above date and was hospitalized for further evaluation of their emergent condition. - New Patient This patient is new to me today: Yes Date on this admission: 12/16/16 - Critical Care Critical Care patient: No
[2016-12-16 05:46] VITALS: BMI 21.2
[2016-12-16] MEDS: ALBUTEROL SO4 2.5/IPRATROPIUM 0.5 INH SOL 3 ML VIAL.NEB. NEB SCH ×4 (06:26→23:33)
[2016-12-16] MEDS ORDERED: BACLOFEN 10 MG TABLET (FP) PO PRN (06:39)
[2016-12-16] MEDS ORDERED: DOCUSATE SODIUM 100 MG CAPSULE (FP) PO PRN (06:39)
[2016-12-16] MEDS: HYDROmorphone HCL CARPU-JECT 1 MG/1 ML DISP.SYRIN IVPB PRN ×2 (06:55→21:55)
[2016-12-16 07:41] LABS: MCH 30.3 pg (25.7-33.7); MCHC 32.8 g/dl (32.0-36.0); MEAN CELL VOLUME 92.3 fl (80-96); MEAN PLT VOLUME 7.7 fl (7.5-11.1); PLATELET COUNT 231 K/MM3 (134-434); RDW 14.1 % (11.6-15.6); WHITE BLOOD COUNT 5.5 K/mm3 (4.0-10.0)
[2016-12-16 08:00] LABS: ANION GAP 7 (8-16); CALCIUM 8.6 mg/dL (8.5-10.1); CO2 33 mmol/L (21-32); CREATININE 0.4 mg/dL (0.55-1.02); GLUCOSE,RANDOM 108 mg/dL (74-106)
[2016-12-16 08:10] LABS: INR 1.18 (0.82-1.09)
[2016-12-16] MEDS ORDERED: ENOXAPARIN NA (PORCINE) 40 MG/0.4 ML DISP.SYRIN SQ SCH (10:00)
[2016-12-16] MEDS: PANTOPRAZOLE 20 MG TABLET (FP) PO SCH (10:25)
[2016-12-16] MEDS: FOLIC ACID 1 MG TABLET (FP) PO SCH (10:25)
[2016-12-16] MEDS: CHOLECALCIFEROL (VITAMIN D3) 1,000 UNIT TABLET (FP) PO SCH (10:25)
[2016-12-16] MEDS: amLODIPine BESYLATE 5 MG TABLET (FP) PO SCH (10:25)
[2016-12-16] MEDS: oxyCODONE HCL 5 MG TABLET PO PRN ×2 (10:25→16:46)
[2016-12-16] MEDS: SPIRONOLACTONE 25 MG TABLET (FP) PO SCH (10:25)
[2016-12-16] MEDS: ACETAMINOPHEN 325 MG TABLET (FP) PO PRN ×2 (10:26→16:46)
--- NOTE | 2016-12-16 10:54 | EKG ---
Test Reason : Blood Pressure : / mmHG Vent. Rate : 077 BPM Atrial Rate : 077 BPM P-R Int : 094 ms QRS Dur : 156 ms QT Int : 428 ms P-R-T Axes : 000 -74 057 degrees QTc Int : 484 ms POOR DATA QUALITY, INTERPRETATION MAY BE ADVERSELY AFFECTED SINUS RHYTHM WITH SHORT CA WITH PREMATURE SUPRAVENTRICULAR COMPLEXES LEFT AXIS DEVIATION RIGHT BUNDLE BRANCH BLOCK ABNORMAL ECG WHEN COMPARED WITH ECG OF 24-JUL-2016 09:46, PREMATURE VENTRICULAR COMPLEXES ARE NO LONGER PRESENT PREMATURE SUPRAVENTRICULAR COMPLEXES ARE NOW PRESENT CA INTERVAL HAS DECREASED Confirmed by STANISLAW INFANTE MD ([id number]) on 12/16/2016 10:54:35 AM Referred By: Confirmed By:STANISLAW INFANTE MD
--- NOTE | 2016-12-16 12:05 | PN ---
Progress Note (short form) - Note Progress Note: PULMONARY CONSULTATION DICTATED 12/16/16 IMP LLE DVT LIKELY PROVOKED ADVANCED COPD ON O2 ACUTE ON CHRONIC BACK PAIN MULTIPLE COMPRESSION FXS S/P KYPHOPLASTY HTN PLAN LOVENOX ELIQUIS INHALED BRONCHODILATORS NASAL O2 PAIN MEDS PAIN MANAGEMENT CONSULT DR HUTTON Problem List - Problems (1) Compression fracture Code(s): NAY8256 - (2) Intractable low back pain Code(s): M54.5 - LOW BACK PAIN (3) Back pain Code(s): M54.9 - DORSALGIA, UNSPECIFIED Qualifiers: Back pain location: low back pain Chronicity: acute Back pain laterality: midline Sciatica presence: without sciatica Qualified Code(s ): M54.5 - Low back pain (4) COPD (chronic obstructive pulmonary disease) Code(s): J44.9 - CHRONIC OBSTRUCTIVE PULMONARY DISEASE, UNSPECIFIED Qualifiers : Emphysema type: unspecified (5) Dyspnea Code(s): R06.00 - DYSPNEA, UNSPECIFIED Qualifiers: Dyspnea type: dyspnea on exertion Qualified Code(s): R06.09 - Other forms of dyspnea (6) HTN (hypertension) Code(s): I10 - ESSENTIAL (PRIMARY) HYPERTENSION Qualifiers: Hypertension type: essential hypertension Qualified Code(s): I10 - Essential (primary) hypertension (7) Spinal stenosis Code(s): M48.00 - SPINAL STENOSIS, SITE UNSPECIFIED Qualifiers: Spinal region: lumbosacral Qualified Code(s): M48.07 - Spinal stenosis , lumbosacral region (8) DVT (deep venous thrombosis) Code(s): I82.409 - ACUTE EMBOLISM AND THOMBOS UNSP DEEP VN UNSP LOWER EXTREMITY
--- NOTE | 2016-12-16 12:34 | CONS ---
DATE OF CONSULTATION: 12/16/2016 REFERRING PHYSICIAN: Katie Gu MD HISTORY OF PRESENT ILLNESS: The patient is an 86-year-old white female known to me from previous hospitalization with a past medical history of arthritis, chronic lower back pain status post kyphoplasty a few months ago, multiple compression fractures, hypertension, advanced COPD on home O2, hyperlipidemia, history of pancreatic ulcers, who was admitted to [facility] with complaint of lower back pain of approximately 6 days. Patient states she was doing relatively well until approximately 6 days prior to admission when she started doing some cleaning and lifted her duster and felt pain in the back. She described the pain as sharp in character, went into right lower abdomen. Patient is essentially wheelchair- bound, but she attends PT at home. She denies any chest pains or palpitations, any nausea or vomiting. She does complain of shortness of breath with exertion, which is chronic. She has a history of tobacco use, approximately 1 pack per day for many years, quit 2 years ago. There is no history of occupational exposure to chemical fumes. Patient states she was admitted with the above. On admission, she stated about the pain, she was started on some analgesics. Of note, for the past 2 weeks, though, she stated she had some left lower extremity swelling. She underwent a duplex lower extremity earlier today which revealed left lower extremity DVT. She was started on anticoagulation. There is no previous history of DVT or PE in the past. PAST MEDICAL HISTORY: Again includes COPD on home O2, multiple compression fractures, status post kyphoplasty L1, L3, L4, appendectomy, history of left hip replacement, small bowel obstruction, arthritis, chronic low back pain, hypertension, hyperlipidemia, pancreatic ulcers. REVIEW OF SYSTEMS: No orthopnea. No PND. Positive back pain. No chest pain. No palpitations. No nausea. No vomiting. No hemoptysis. No abdominal pain. No lower extremity discomfort. CURRENT MEDICATIONS: Include Tylenol, Lovenox, Duo-Neb, Colace, Norvasc, Aldactone, Dilaudid, Roxicodone, Protonix, folic acid, vitamin D3. PHYSICAL EXAMINATION: General: The patient is an elderly white female, then, well-developed, awake, alert, in no acute distress. Vital signs: She is currently afebrile, blood pressure is 161/81, respiratory rate 20, O2 saturation is 98% on 2 L. HEENT: Head is normocephalic atraumatic. Neck: Supple. Heart: Regular, S1, S2. Chest: Diminished breath sounds bilaterally. Abdomen: Soft. Bowel sounds positive. Extremities: Showed swelling and erythema in left lower extremity. LABORATORIES: WBC is 5.5, hemoglobin 12.6, hematocrit 38.3, with a platelet count of 231,000. INR is 1.18. BUN 11, creatinine 0.4. Chest x-ray reveals no acute infiltrates, nor effusions. There is osteopenia. The patient is status post kyphoplasty Lumbar spine, CT showed multiple compression fractures i. There is mid bulge at L4, mild to moderate canal stenosis, no distended gallbladder, cystic density of the lower pelvis near the bladder. Duplex of the lower extremities showed extensive DVT, left lower extremity. IMPRESSION: 1. Acute deep venous thrombosis, left lower extremity, likely provoked secondary to sedentary lifestyle 2. Acute on chronic back pain. 3. Advanced chronic obstructive pulmonary disease on home O2. 4. Hypertension. PLAN: Analgesics, Lovenox, we will start Eliquis for the pain management evaluation, supplemental O2, inhaled bronchodilators. CHRISTINA HUTTON M.D. [id number] MTDD
[2016-12-16] MEDS ORDERED: POTASSIUM CHLORIDE TABS 20 MEQ TABLET.ER (FP) PO ONE (13:00)
--- NOTE | 2016-12-16 13:20 | PN ---
Teaching Attending Note Name of Resident: Orion Alfaro ATTENDING PHYSICIAN STATEMENT I saw and evaluated the patient. I reviewed the resident's note and discussed the case with the resident. I agree with the resident's findings and plan as documented. SUBJECTIVE:does not experience pain at rest. only on movement. improvement with pain regimen here. states she was trying to dust the top of her cabinets when experienced excruciating pain suddenly. denies bowel/bladder incontinence. does admit to numbness/tingling of extremities but this is chronic symptom. also admits to dysuria and urge to urinate for several days. as well as LLE pain and swelling. recently underwent kyphoplasty by automotive painter helper 2 months ago and her pain has been controlled since then. no complications from the procedure per pt. OBJECTIVE: Last Vital Signs Temp Pulse Resp BP Pulse Ox 98.2 F 89 18 161/81 99 12/15/16 18:17 12/16/16 11:20 12/16/16 05:10 12/16/16 05:10 12/16/16 11:20 General NAD, thin, frail woman CV S1 S2 RRR no murmur/rub/gallop Lungs CTA B/L no wheezing/rales/rhonchi Abdomen +suprapubic distention and tenderness Extremities LLE trace edema and calf tenderness Back +muscle spasms R lumbar area, +point tenderness. no bone point tenderness ASSESSMENT AND PLAN: 86yo F with PMH chronic low back pain s/p multiple kyphoplasty and multiple compression fractures, and COPD on 2 L NC admitted for intractable pain 1. Intractable pain- requiring high doses of dialudid for pain control. likely muscular strain from physical activity but can not r/o worsening disc herniation. consult pain management who also performed surgery to compare. cont current pain management dilaudid and muscle relaxer 2. + LLE DVT- likely provoked due to recent surgery and decreased mobility. on full dose lovenox. will convert to NOAC once confirmed no need for procedure/ intervention. counseled on risks of anticoagulation and risks of bleeding. verbalized understanding 3. Distended bladder- bladder scan >[address] catheter and check UA/UCx. will wait to treat as afebrile and no leukocytosis. will intiate abx therapy if + 4. hypokalemia- replete 5. COPD pn home O2- no signs of acute exacerbation. saturating well on home O2 6. HTN- above goal however likely due to pain. cont current managment consider increasing if needed 7. DNR
--- NOTE | 2016-12-16 13:54 | PN ---
Physical Exam: SUBJECTIVE: Patient seen and examined at bedside. States that she is having severe pain in her back and edema in her lower extremities. Pt feels numbness and tingling in her legs, and feels increased pain and back spasms when she moves. OBJECTIVE: Vital Signs Period Temp Pulse Resp BP Sys/Solares Pulse Ox Last 24 Hr 97.9 F 77-89 18-18 104-161/46-81 98-99 GENERAL: The patient is awake, alert, and fully oriented, in mild distress HEAD: Normal with no signs of trauma. EYES: PERRL, extraocular movements intact, sclera anicteric, conjunctiva clear. No ptosis. ENT: Ears normal, nares patent, oropharynx clear without exudates, moist mucous membranes. NECK: Trachea midline, supple. LUNGS: Breath sounds equal, clear to auscultation bilaterally, no wheezes, no crackles, no accessory muscle use. HEART: Regular rate and rhythm, S1, S2 without murmur, rub or gallop. ABDOMEN: mildly distended, suprapubic tenderness, normoactive bowel sounds, no guarding, no rebound, no hepatosplenomegaly, no masses. EXTREMITIES: 2+ posterior tibial pulses, warm, well-perfused, 1+ edema in lower extremities b/l. Pt strength 3/5 in lower extremities, 3-4/5 in upper extremities, sensation intact. Did not palpate spine d/t severe pain NEUROLOGICAL: Cranial nerves II through XII grossly intact. Laboratory Results - last 24 hr 12/16/16 12/16/16 12/16/16 06:00 06:00 06:00 WBC 5.5 RBC 4.15 Hgb 12.6 Hct 38.3 MCV 92.3 MCH 30.3 MCHC 32.8 RDW 14.1 Plt Count 231 MPV 7.7 INR 1.18 H Sodium 137 Potassium 3.3 L Chloride 97 L Carbon Dioxide 33 H Anion Gap 7 L BUN 11 D Creatinine 0.4 L Random Glucose 108 H Calcium 8.6 Active Medications Generic Name Dose Route Start Last Admin Trade Name Freq PRN Reason Stop Dose Admin Acetaminophen 650 mg 12/16/16 02:24 Tylenol - PO Q6H PRN BACK PAIN Acetaminophen 325 mg 12/16/16 05:55 12/16/16 10:26 Tylenol - PO 325 mg Q6H PRN Administration PAIN Albuterol/Ipratropium 1 amp 12/16/16 06:00 12/16/16 11:20 Duoneb - NEB 1 amp QIDR LILLIANA Administration Amlodipine Besylate 5 mg 12/16/16 10:00 12/16/16 10:25 Norvasc - PO 5 mg DAILY LILLIANA Administration Baclofen 10 mg 12/16/16 06:39 Lioresal - PO TID PRN BACK PAIN Cholecalciferol 1,000 unit 12/16/16 10:00 12/16/16 10:25 Vitamin D3 - PO 1,000 unit DAILY LILLIANA Administration Docusate Sodium 100 mg 12/16/16 06:39 Colace - PO BID PRN CONSTIPATION Enoxaparin Sodium 40 mg 12/16/16 22:00 Lovenox - SQ BID LILLIANA Folic Acid 1 mg 12/16/16 10:00 12/16/16 10:25 Folic Acid - PO 1 mg DAILY LILLIANA Administration Hydromorphone HCl 1 mg 12/16/16 05:49 12/16/16 06:55 Dilaudid Injection - IVPB 1 mg Q4H PRN Administration PAIN Oxycodone HCl 5 mg 12/16/16 05:55 12/16/16 10:25 Roxicodone - PO 5 mg Q6H PRN Administration PAIN Pantoprazole Sodium 20 mg 12/16/16 10:00 12/16/16 10:25 Protonix - PO 20 mg DAILY LILLIANA Administration Spironolactone 25 mg 12/16/16 10:00 12/16/16 10:25 Aldactone - PO 25 mg DAILY LILLIANA Administration ASSESSMENT/PLAN: 86 y/o F with PMH chronic lower back pain, arthritis, osteoperosis with multiple compression fractures and COPD (on 2L NC 02), who presented to the ED with acute on chronic back pain. Pt admitted to med-surg for intractable back pain. #Intractable back pain secondary to physical exertion -Pt was dusting when occurred, reached above her head and felt severe pain -pain control with dilaudid 1mg IVPB q4h PRN and percocet 5/325 -Consulted Dr. Guillaume, pain management -Pt did PT in past which helped -Continue baclofen 10mg PO TID PRN for muscle spasms #LLE edema secondary to DVT -positive DVT on sono -most likely due to immobilization and post-surgery -will change to NOAC after discussing with Dr. Guillaume if intervention needed #HTN- d/t pain -Continue amlodipine 5mg PO daily -Will increase dose if does not resolve after pain adequately treated #suprapubic tenderness d/t urinary retention -retention noted by bladder scan -F/u UA, UCx #Hypokalemia -Pt repleted with Kdur 20 mEq -Will follow levels #COPD -On 2L NC 02 -Continue Duonebs 1 amp QID F/E/N -Monitor electrolytes -Regular diet Dispo pt transferred from obs to med-surg Visit type - Emergency Visit Emergency Visit: No - New Patient This patient is new to me today: Yes Date on this admission: 12/16/16 - Critical Care Critical Care patient: No
[2016-12-16 13:56] LABS: URINE APPEARANCE CLEAR; URINE BILIRUBIN NEGATIVE (NEGATIVE); URINE BLOOD 2+ (NEGATIVE); URINE COLOR LTYELLOW; URINE GLUCOSE (UA) NEGATIVE (NEGATIVE); URINE KETONE NEGATIVE (NEGATIVE); URINE LEUK ESTERASE NEGATIVE (NEGATIVE); URINE NITRITE NEGATIVE (NEGATIVE); URINE PROTEIN NEGATIVE (NEGATIVE); URINE UROBILINOGEN NEGATIVE mg/dL (0.2-1.0)
[2016-12-17] MEDS: ALBUTEROL SO4 2.5/IPRATROPIUM 0.5 INH SOL 3 ML VIAL.NEB. NEB SCH ×4 (06:35→23:20)
[2016-12-17 07:08] LABS: MCH 30.8 pg (25.7-33.7); MEAN CELL VOLUME 93.2 fl (80-96); MEAN PLT VOLUME 8.5 fl (7.5-11.1); PLATELET COUNT 228 K/MM3 (134-434); RDW 13.9 % (11.6-15.6); WHITE BLOOD COUNT 4.6 K/mm3 (4.0-10.0)
[2016-12-17 07:36] LABS: ANION GAP 5 (8-16); CALCIUM 8.9 mg/dL (8.5-10.1); CO2 36 mmol/L (21-32); CREATININE 0.4 mg/dL (0.55-1.02); GLUCOSE,RANDOM 86 mg/dL (74-106)
[2016-12-17] MEDS: HYDROmorphone HCL CARPU-JECT 1 MG/1 ML DISP.SYRIN IVPB PRN ×2 (07:38→13:18)
[2016-12-17] MEDS: PANTOPRAZOLE 20 MG TABLET (FP) PO SCH (10:07)
[2016-12-17] MEDS: SPIRONOLACTONE 25 MG TABLET (FP) PO SCH (10:07)
[2016-12-17] MEDS: CHOLECALCIFEROL (VITAMIN D3) 1,000 UNIT TABLET (FP) PO SCH (10:07)
[2016-12-17] MEDS: ENOXAPARIN NA (PORCINE) 40 MG/0.4 ML DISP.SYRIN SQ SCH (10:07)
[2016-12-17] MEDS: FOLIC ACID 1 MG TABLET (FP) PO SCH (10:07)
[2016-12-17] MEDS: amLODIPine BESYLATE 5 MG TABLET (FP) PO SCH (10:07)
--- NOTE | 2016-12-17 11:15 | PN ---
Progress Note (short form) - Note Progress Note: PULMONARY AWAKE/ALERT LESS PAIN VSS ANICTERIC DISTANT B/L BREATH SOUNDS S1S2 BS+ SOFT NO EDEMA LABS/MEDS/NOTES/IMAGING REVIEWED IMP LLE DVT LIKELY PROVOKED ADVANCED COPD ON O2 ACUTE ON CHRONIC BACK PAIN MULTIPLE COMPRESSION FXS S/P KYPHOPLASTY HTN PLAN LOVENOX ELIQUIS INHALED BRONCHODILATORS NASAL O2 PAIN MEDS PAIN MANAGEMENT CONSULT Daria DIOR MD
--- NOTE | 2016-12-17 13:00 | PN ---
Teaching Attending Note Name of Resident: Betsy Senior ATTENDING PHYSICIAN STATEMENT I saw and evaluated the patient. I reviewed the resident's note and discussed the case with the resident. I agree with the resident's findings and plan as documented. SUBJECTIVE:continues to have pain but improved. limited mobilty due to pain and has not moved much. pt is wheelchair bound. denies CP, SOB, fever, chills, N/V/C ?D OBJECTIVE: Last Vital Signs Temp Pulse Resp BP Pulse Ox 98.7 F 80 17 131/58 98 12/17/16 10:00 12/17/16 11:02 12/17/16 10:00 12/17/16 10:12/17/16 11:02 General NAD, thin, frail woman Abdomen soft NT/ND Extremities LLE trace edema and calf tenderness Back +muscle spasms R lumbar area, +point tenderness. no bone point tenderness ASSESSMENT AND PLAN: 86yo F with PMH chronic low back pain s/p multiple kyphoplasty and multiple compression fractures, and COPD on 2 L NC admitted for intractable pain 1. Intractable pain-pain improved. still requiring IV dilaudid. states interior decorator painting evaluated her last night but there is no documentation in chart or [employer]. will place call to office. make muscle relaxer TID standing instead of prn as she is not asking for it. informed of side effects of lethargy. PT eval. pt does not want OTF states she has PT come to her house whom she has good report with. 2. + LLE DVT- likely provoked due to recent surgery and decreased mobility. switch lovenox to eliquis. do not antipate need for surgery 3. Distended bladder- franklin in place. UA negative for infection. start bladder training trials. 4. hypokalemia- replete 5. COPD pn home O2- no signs of acute exacerbation. saturating well on home O2 6. HTN- improved. cont home management 7. DNR
--- NOTE | 2016-12-17 16:28 | PN ---
Physical Exam: SUBJECTIVE: Patient seen and examined at bedside today. Pt stated that she was in a lot of pain this morning, but that it had improved this afternoon. Still having severe pain in her back, as well as burning in her lower extremities, with tingling. Denies SOB, chest pain, or dysuria. OBJECTIVE: Vital Signs Period Temp Pulse Resp BP Sys/Solares Pulse Ox Last 24 Hr 98.2 F-98.9 F 77-96 17-18 123-131/50-61 98-99 GENERAL: The patient is awake, alert, and fully oriented, in mild distress. on 2L NC HEAD: Normal with no signs of trauma. EYES: PERRL, extraocular movements intact, sclera anicteric, conjunctiva clear. No ptosis. ENT: Ears normal, nares patent, oropharynx clear without exudates, moist mucous membranes. NECK: Trachea midline, full range of motion, supple. LUNGS: Breath sounds equal, clear to auscultation bilaterally, no wheezes, no crackles, no accessory muscle use. HEART: Regular rate and rhythm, S1, S2 without murmur, rub or gallop. ABDOMEN:mild suprapubic tenderness, normoactive bowel sounds, no guarding, no rebound, no hepatosplenomegaly, no masses. EXTREMITIES: 2+ posterior tibial pulses, warm, well-perfused, no edema. Decreased ROM in lower extremities 3/5 today, lumbar spine- tender to palpation. Sensation diminished in lower extremities. NEUROLOGICAL: Cranial nerves II through XII grossly intact. Laboratory Results - last 24 hr 12/17/16 12/17/16 06:30 06:30 WBC 4.6 RBC 4.10 Hgb 12.6 Hct 38.2 MCV 93.2 MCH 30.8 MCHC 33.0 RDW 13.9 Plt Count 228 MPV 8.5 D Sodium 136 Potassium 4.1 D Chloride 95 L Carbon Dioxide 36 H Anion Gap 5 L BUN 9 Creatinine 0.4 L Random Glucose 86 D Calcium 8.9 Active Medications Generic Name Dose Route Start Last Admin Trade Name Freq PRN Reason Stop Dose Admin Acetaminophen 650 mg 12/16/16 02:24 Tylenol - PO Q6H PRN BACK PAIN Acetaminophen 325 mg 12/16/16 05:55 12/16/16 16:46 Tylenol - PO 325 mg Q6H PRN Administration PAIN Albuterol/Ipratropium 1 amp 08/24/17 06:00 12/17/16 11:03 Duoneb - NEB 1 amp QIDR LILLIANA Administration Amlodipine Besylate 5 mg 12/16/16 10:00 12/17/16 10:07 Norvasc - PO 5 mg DAILY LILLIANA Administration Apixaban 5 mg 12/17/16 22:00 Eliquis - PO BID LILLIANA Baclofen 10 mg 12/16/16 06:39 Lioresal - PO TID PRN BACK PAIN Cholecalciferol 1,000 unit 12/16/16 10:00 12/17/16 10:07 Vitamin D3 - PO 1,000 unit DAILY LILLIANA Administration Docusate Sodium 100 mg 12/16/16 06:39 Colace - PO BID PRN CONSTIPATION Folic Acid 1 mg 12/16/16 10:00 12/17/16 10:07 Folic Acid - PO 1 mg DAILY LILLIANA Administration Morphine Sulfate 2 mg 12/17/16 15:13 Morphine Injection - IVPUSH Q4H PRN PAIN Oxycodone HCl 5 mg 12/16/16 05:55 12/16/16 16:46 Roxicodone - PO 5 mg Q6H PRN Administration PAIN Pantoprazole Sodium 20 mg 12/16/16 10:00 12/17/16 10:07 Protonix - PO 20 mg DAILY LILLIANA Administration Spironolactone 25 mg 12/16/16 10:00 12/17/16 10:07 Aldactone - PO 25 mg DAILY LILLIANA Administration ASSESSMENT/PLAN: 86 y/o F with PMH chronic lower back pain, arthritis, osteoperosis with multiple compression fractures and COPD (on 2L NC 02), who presented to the ED with acute on chronic back pain. Pt admitted to med-surg for intractable back pain. #Intractable back pain secondary to physical exertion -pain control with morphine 2 mg IVP q4h PRN -Seen by Dr. Guillaume, reached out - left message at office -baclofen 10mg PO TID for muscle spasms #LLE edema secondary to DVT -positive DVT on sono -most likely due to immobilization and post-surgery -changed from lovenox to eliquis 5mg PO BID #HTN- d/t pain- controlled today -Continue amlodipine 5mg PO daily -Will increase dose if does not resolve after pain adequately treated #suprapubic tenderness d/t urinary retention -retention noted by bladder scan -UCx: negative #Hypokalemia-resolved #COPD -On 2L NC 02 -Continue Duonebs 1 amp QID F/E/N -Monitor electrolytes -Regular diet Dispo -for D/c once pain controlled and seen by PT, if no interventions needed Visit type - Emergency Visit Emergency Visit: No - New Patient This patient is new to me today: No - Critical Care Critical Care patient: No
[2016-12-17] MEDS: morphine CARPU-JECT 2 MG/1 ML DISP.SYRIN IVPUSH PRN ×2 (19:04→23:05)
[2016-12-17] MEDS: oxyCODONE HCL 5 MG TABLET PO PRN (19:05)
[2016-12-17] MEDS: BACLOFEN 10 MG TABLET (FP) PO SCH (21:05)
[2016-12-17] MEDS: APIXABAN 5 MG TABLET PO SCH (21:05)
[2016-12-18] MEDS: oxyCODONE HCL 5 MG TABLET PO PRN ×2 (01:41→13:40)
[2016-12-18] MEDS: BACLOFEN 10 MG TABLET (FP) PO SCH ×3 (05:07→21:11)
[2016-12-18] MEDS: morphine CARPU-JECT 2 MG/1 ML DISP.SYRIN IVPUSH PRN (05:40)
[2016-12-18] MEDS: ALBUTEROL SO4 2.5/IPRATROPIUM 0.5 INH SOL 3 ML VIAL.NEB. NEB SCH ×3 (06:40→17:00)
--- NOTE | 2016-12-18 06:45 | PN ---
Progress Note (short form) - Note Progress Note: c/o back pain worse on movement. no longer has pain in her leg. states she tried patches in the past with no relief. has never been on a long acting pain medication. maura CP, SOB, fever, cihlls, N/V/C/D Current Medications Generic Name Dose Route Start Last Admin Trade Name Freq PRN Reason Stop Dose Admin Acetaminophen 650 mg 12/16/16 02:24 Tylenol - PO Q6H PRN BACK PAIN Acetaminophen 325 mg 12/16/16 05:55 12/16/16 16:46 Tylenol - PO 325 mg Q6H PRN Administration PAIN Albuterol/Ipratropium 1 amp 12/16/16 06:00 12/17/16 23:20 Duoneb - NEB 1 amp QIDR LILLIANA Administration Amlodipine Besylate 5 mg 12/16/16 10:00 12/17/16 10:07 Norvasc - PO 5 mg DAILY LILLIANA Administration Apixaban 5 mg 12/17/16 22:00 12/17/16 21:05 Eliquis - PO 5 mg BID LILLIANA Administration Baclofen 10 mg 12/17/16 22:00 12/18/16 05:07 Lioresal - PO 10 mg TID LILLIANA Administration Cholecalciferol 1,000 unit 12/16/16 10:00 12/17/16 10:07 Vitamin D3 - PO 1,000 unit DAILY LILLIANA Administration Docusate Sodium 100 mg 12/16/16 06:39 Colace - PO BID PRN CONSTIPATION Folic Acid 1 mg 12/16/16 10:00 12/17/16 10:07 Folic Acid - PO 1 mg DAILY LILLIANA Administration Morphine Sulfate 2 mg 12/17/16 15:13 12/18/16 05:40 Morphine Injection - IVPUSH 2 mg Q4H PRN Administration PAIN Oxycodone HCl 5 mg 12/16/16 05:55 12/18/16 01:41 Roxicodone - PO 5 mg Q6H PRN Administration PAIN Pantoprazole Sodium 20 mg 12/16/16 10:00 12/17/16 10:07 Protonix - PO 20 mg DAILY LILLIANA Administration Spironolactone 25 mg 12/16/16 10:00 12/17/16 10:07 Aldactone - PO 25 mg DAILY LILLIANA Administration Last Vital Signs Temp Pulse Resp BP Pulse Ox 98.0 F 87 18 136/53 96 12/17/16 22:00 12/17/16 22:00 12/17/16 22:00 12/17/16 22:00 12/17/16 19:00 General NAD, thin, frail woman Abdomen soft NT/ND Extremities LLE trace edema and calf tenderness Back +muscle spasms R lumbar area, +point tenderness. no bone point tenderness ASSESSMENT AND PLAN: 86yo F with PMH chronic low back pain s/p multiple kyphoplasty and multiple compression fractures, and COPD on 2 L NC admitted for intractable pain 1. Intractable pain-still requiring high amount of narcotics IV to alleviate pain. unable to move due to pain. multiple attmepts to reach pain specialist. will start oxycodone SR 10mg BID. cont pain medication for breakthrough pain. concern for lethargy given pt age but will need to monitor closely. cont baclofen TID RTC. PT eval. does not OTF, encouraged may be beneficial short term 2. + LLE DVT- likely provoked due to recent surgery and decreased mobility. on eliquis 3. Distended bladder- franklin in place. bladder training trials. 4. hypokalemia- replete 5. COPD pn home O2- no signs of acute exacerbation. saturating well on home O2 6. HTN- improved. cont home management 7. DNR Visit type - Emergency Visit Emergency Visit: Yes ED Registration Date: 12/17/16 Care time: The patient presented to the Emergency Department on the above date and was hospitalized for further evaluation of their emergent condition. - New Patient This patient is new to me today: No - Critical Care Critical Care patient: No - Discharge Referral Referred to [facility] Med P.C.: No
[2016-12-18 07:37] LABS: MCH 30.9 pg (25.7-33.7); MCHC 33.2 g/dl (32.0-36.0); MEAN CELL VOLUME 93.1 fl (80-96); MEAN PLT VOLUME 8.3 fl (7.5-11.1); PLATELET COUNT 254 K/MM3 (134-434); RDW 13.9 % (11.6-15.6); WHITE BLOOD COUNT 5.9 K/mm3 (4.0-10.0)
[2016-12-18 07:59] LABS: ANION GAP 5 (8-16); CALCIUM 8.6 mg/dL (8.5-10.1); CO2 37 mmol/L (21-32); CREATININE 0.4 mg/dL (0.55-1.02); GLUCOSE,RANDOM 110 mg/dL (74-106)
[2016-12-18] MEDS ORDERED: PT OWN MED DRAWER 7, Y5N ONE ×4 (10:43→20:48)
[2016-12-18] MEDS: CHOLECALCIFEROL (VITAMIN D3) 1,000 UNIT TABLET (FP) PO SCH (10:48)
[2016-12-18] MEDS: PANTOPRAZOLE 20 MG TABLET (FP) PO SCH (10:48)
[2016-12-18] MEDS: FOLIC ACID 1 MG TABLET (FP) PO SCH (10:48)
[2016-12-18] MEDS: oxyCODONE HCL 10 MG SUSTAINED ACTING TABLET PO PRN ×2 (10:48→22:37)
[2016-12-18] MEDS: APIXABAN 5 MG TABLET PO SCH ×2 (10:48→21:11)
[2016-12-18] MEDS: SPIRONOLACTONE 25 MG TABLET (FP) PO SCH (10:48)
[2016-12-18] MEDS: amLODIPine BESYLATE 5 MG TABLET (FP) PO SCH (10:49)
--- NOTE | 2016-12-18 11:33 | PN ---
Progress Note (short form) - Note Progress Note: PULMONARY AWAKE/ALERT LESS PAIN VSS ANICTERIC DISTANT B/L BREATH SOUNDS S1S2 BS+ SOFT NO EDEMA LABS/MEDS/NOTES/IMAGING REVIEWED IMP LLE DVT LIKELY PROVOKED ADVANCED COPD ON O2 ACUTE ON CHRONIC BACK PAIN MULTIPLE COMPRESSION FXS S/P KYPHOPLASTY HTN PLAN ELIQUIS INHALED BRONCHODILATORS NASAL O2 PAIN MEDS Daria DIOR MD
[2016-12-18] MEDS ORDERED: DOCUSATE SODIUM 100 MG CAPSULE (FP) PO PRN (18:18)
[2016-12-18] MEDS: ONDANSETRON 4 MG/2 ML VIAL IVPB PRN (20:58)
[2016-12-19] MEDS: ALBUTEROL SO4 2.5/IPRATROPIUM 0.5 INH SOL 3 ML VIAL.NEB. NEB SCH ×5 (00:07→23:57)
[2016-12-19] MEDS: morphine CARPU-JECT 2 MG/1 ML DISP.SYRIN IVPUSH PRN (04:49)
[2016-12-19] MEDS: BACLOFEN 10 MG TABLET (FP) PO SCH ×3 (05:36→21:06)
--- NOTE | 2016-12-19 09:18 | PN ---
Physical Exam: SUBJECTIVE: Patient seen and examined at bedside. Afebrile overnight. States that her back pain has improved, and does not have numbness or tingling in her lower extremities. Denies dysuria, chest pain, SOB. OBJECTIVE: Vital Signs Period Temp Pulse Resp BP Sys/Solares Pulse Ox Last 24 Hr 98 F-98.4 F 71-87 16-19 115-149/46-82 95-95 GENERAL: The patient is awake, alert, and fully oriented, in no acute distress. HEAD: Normal with no signs of trauma. EYES: PERRL, extraocular movements intact, sclera anicteric, conjunctiva clear. NECK: Trachea midline, full range of motion, supple. LUNGS: Breath sounds equal, clear to auscultation bilaterally, no wheezes, no crackles, no accessory muscle use. HEART: Regular rate and rhythm, S1, S2 without murmur, rub or gallop. ABDOMEN: Soft, nontender, nondistended, normoactive bowel sounds, no guarding, no rebound, no hepatosplenomegaly, no masses. MUSCULOSKELETAL: tender to palpation R lumbar region, just above tail bone EXTREMITIES: 2+ posterior tibial pulses, warm, well-perfused, trace edema b/l NEUROLOGICAL: Cranial nerves II through XII grossly intact. Active Medications Generic Name Dose Route Start Last Admin Trade Name Freq PRN Reason Stop Dose Admin Acetaminophen 650 mg 12/18/16 18:18 Tylenol - PO Q6H PRN BACK PAIN Acetaminophen 325 mg 12/18/16 18:18 Tylenol - PO Q6H PRN PAIN Albuterol/Ipratropium 1 amp 12/19/16 00:00 12/19/16 07:24 Duoneb - NEB 1 amp QIDR LILLIANA Administration Amlodipine Besylate 5 mg 12/19/16 10:00 Norvasc - PO DAILY LILLIANA Apixaban 5 mg 12/17/16 22:00 12/18/16 21:11 Eliquis - PO 5 mg BID LILLIANA Administration Baclofen 10 mg 12/17/16 22:00 12/19/16 05:36 Lioresal - PO 10 mg TID LILLIANA Administration Cholecalciferol 1,000 unit 12/19/16 10:00 Vitamin D3 - PO DAILY [facility] Docusate Sodium 100 mg 12/18/16 18:18 Colace - PO BID PRN CONSTIPATION Folic Acid 1 mg 12/19/16 10:00 Folic Acid - PO DAILY [facility] Ondansetron HCl 4 mg 12/18/16 20:39 12/18/16 20:58 Zofran Injection IVPB 4 mg Q4H PRN Administration NAUSEA AND/OR VOMITING Oxycodone HCl 5 mg 12/18/16 18:18 Roxicodone - PO Q6H PRN PAIN Oxycodone HCl 10 mg 12/19/16 10:00 Oxycontin - PO BID [facility] Pantoprazole Sodium 20 mg 12/19/16 10:00 Protonix - PO DAILY [facility] Spironolactone 25 mg 12/19/16 10:00 Aldactone - PO DAILY [facility] ASSESSMENT/PLAN: 86 y/o F with PMH chronic lower back pain, arthritis, osteoperosis with multiple compression fractures and COPD (on 2L NC 02), who presented to the ED with acute on chronic back pain. Pt admitted to med-surg for intractable back pain. #Intractable back pain secondary to physical exertion -On Oxycodone 10mg PO BID PRN for pain, morphine has been d/c to determine pain tolerance -To be seen by PT today -Continue baclofen 10mg PO TID for muscle spasms #LLE edema secondary to DVT -positive DVT on sono -most likely due to immobilization and post-surgery -changed from lovenox to eliquis 5mg PO BID #HTN- d/t pain- controlled today -Continue amlodipine 5mg PO daily -Will increase dose if does not resolve after pain adequately treated #suprapubic tenderness d/t urinary retention -pt no longer having dysuria, or suprapubic tenderness -UCx: negative -Franklin has been d/c, will see how pt tolerates #Hypokalemia-resolved #COPD -On 2L NC 02 -Continue Duonebs 1 amp QID F/E/N -Monitor electrolytes -Regular diet Dispo -to be seen by PT today, anticipating d/c - will see how tolerates pain, franklin removal Visit type - Emergency Visit Emergency Visit: No - New Patient This patient is new to me today: No - Critical Care Critical Care patient: No
[2016-12-19] MEDS ORDERED: PT OWN MED DRAWER 7, Y5N ONE ×2 (09:35→20:17)
[2016-12-19] MEDS: oxyCODONE HCL 10 MG SUSTAINED ACTING TABLET PO SCH ×2 (09:37→21:05)
[2016-12-19] MEDS: SPIRONOLACTONE 25 MG TABLET (FP) PO SCH (09:37)
[2016-12-19] MEDS: FOLIC ACID 1 MG TABLET (FP) PO SCH (09:37)
[2016-12-19] MEDS: amLODIPine BESYLATE 5 MG TABLET (FP) PO SCH (09:37)
[2016-12-19] MEDS: PANTOPRAZOLE 20 MG TABLET (FP) PO SCH (09:37)
[2016-12-19] MEDS: APIXABAN 5 MG TABLET PO SCH ×2 (09:37→21:06)
[2016-12-19] MEDS: CHOLECALCIFEROL (VITAMIN D3) 1,000 UNIT TABLET (FP) PO SCH (09:37)
--- NOTE | 2016-12-19 10:55 | PN ---
Teaching Attending Note Name of Resident: Betsy Senior ATTENDING PHYSICIAN STATEMENT I saw and evaluated the patient. I reviewed the resident's note and discussed the case with the resident. I agree with the resident's findings and plan as documented. SUBJECTIVE:states pain is improved. has not moved much due to fear of having pain. denies CP, SOB, fever, chills, N/V/C/D OBJECTIVE: Last Vital Signs Temp Pulse Resp BP Pulse Ox 98.4 F 71 16 134/46 95 12/19/16 06:00 12/19/16 06:00 12/19/16 06:00 12/19/16 06:00 12/19/16 03:00 General NAD, thin, frail woman Abdomen soft NT/ND Extremities no edema Back +muscle spasms R lumbar area, +point tenderness. no bone point tenderness ASSESSMENT AND PLAN: 86yo F with PMH chronic low back pain s/p multiple kyphoplasty and multiple compression fractures, and COPD on 2 L NC admitted for intractable pain 1. Intractable pain- improved with long acting oxycodone. will d/c morphine and continue percocet for breakthrough pain to determine pain requirements for home. PT eval as pt does not was OTF however feel she would benefit. may now be re-considering. cont current management. 2. + LLE DVT- likely provoked due to recent surgery and decreased mobility. on eliquis 3. Distended bladder- tolerating bladder training. d/c franklin. 4. hypokalemia- replete 5. COPD pn home O2- no signs of acute exacerbation. saturating well on home O2 6. HTN- improved. cont home management 7. DNR 8. d/c planning tomorrow home vs OTF.
--- NOTE | 2016-12-19 11:57 | PN ---
Progress Note (short form) - Note Progress Note: PULMONARY AWAKE/ALERT/PAIN CONTINUES VSS ANICTERIC DISTANT B/L BREATH SOUNDS S1S2 BS+ SOFT NO EDEMA LABS/MEDS/NOTES/IMAGING REVIEWED IMP LLE DVT LIKELY PROVOKED ADVANCED COPD ON O2 ACUTE ON CHRONIC BACK PAIN MULTIPLE COMPRESSION FXS S/P KYPHOPLASTY HTN PLAN ELIQUIS INHALED BRONCHODILATORS NASAL O2 PAIN MEDS Daria DIOR MD
[2016-12-19] MEDS: ONDANSETRON 4 MG/2 ML VIAL IVPB PRN (13:10)
[2016-12-19] MEDS: oxyCODONE HCL 5 MG TABLET PO PRN (16:25)
[2016-12-19] MEDS: ACETAMINOPHEN 325 MG TABLET (FP) PO PRN (16:25)
[2016-12-19] MEDS: POLYETHYLENE GLYCOL 3350 119 GM BTL PO SCH (20:57)
[2016-12-20] MEDS: BACLOFEN 10 MG TABLET (FP) PO SCH ×3 (05:43→21:42)
[2016-12-20] MEDS: oxyCODONE HCL 5 MG TABLET PO PRN ×2 (06:02→23:04)
[2016-12-20] MEDS: ALBUTEROL SO4 2.5/IPRATROPIUM 0.5 INH SOL 3 ML VIAL.NEB. NEB SCH ×3 (06:40→16:50)
[2016-12-20] MEDS ORDERED: PT OWN MED DRAWER 7, Y5N ONE ×2 (09:19→21:07)
[2016-12-20] MEDS: FOLIC ACID 1 MG TABLET (FP) PO SCH (09:21)
[2016-12-20] MEDS: SPIRONOLACTONE 25 MG TABLET (FP) PO SCH (09:21)
[2016-12-20] MEDS: PANTOPRAZOLE 20 MG TABLET (FP) PO SCH (09:22)
[2016-12-20] MEDS: CHOLECALCIFEROL (VITAMIN D3) 1,000 UNIT TABLET (FP) PO SCH (09:22)
[2016-12-20] MEDS: APIXABAN 5 MG TABLET PO SCH ×2 (09:22→21:42)
[2016-12-20] MEDS: amLODIPine BESYLATE 5 MG TABLET (FP) PO SCH (09:22)
[2016-12-20] MEDS: oxyCODONE HCL 10 MG SUSTAINED ACTING TABLET PO SCH ×2 (09:22→21:42)
[2016-12-20] MEDS: POLYETHYLENE GLYCOL 3350 119 GM BTL PO SCH (09:25)
--- NOTE | 2016-12-20 13:40 | PN ---
Progress Note, Physician History of Present Illness: pulmonary alert,nad,-sob,+back pain - Current Medication List Current Medications: Active Medications Acetaminophen (Tylenol -) 650 mg PO Q6H PRN PRN Reason: BACK PAIN Acetaminophen (Tylenol -) 325 mg PO Q6H PRN PRN Reason: PAIN Last Admin: 12/19/16 16:25 Dose: 325 mg Albuterol/Ipratropium (Duoneb -) 1 amp NEB QIDR [facility] Last Admin: 12/20/16 06:40 Dose: 1 amp Amlodipine Besylate (Norvasc -) 5 mg PO DAILY [facility] Last Admin: 12/20/16 09:22 Dose: 5 mg Apixaban (Eliquis -) 5 mg PO BID [facility] Last Admin: 12/20/16 09:22 Dose: 5 mg Baclofen (Lioresal -) 10 mg PO TID [facility] Last Admin: 12/20/16 13:11 Dose: 10 mg Cholecalciferol (Vitamin D3 -) 1,000 unit PO DAILY [facility] Last Admin: 12/20/16 09:22 Dose: 1,000 unit Docusate Sodium (Colace -) 100 mg PO BID PRN PRN Reason: CONSTIPATION Last Admin: 12/20/16 13:11 Dose: 100 mg Folic Acid (Folic Acid -) 1 mg PO DAILY [facility] Last Admin: 12/20/16 09:21 Dose: 1 mg Ondansetron HCl (Zofran Injection) 4 mg IVPB Q4H PRN PRN Reason: NAUSEA AND/OR VOMITING Last Admin: 12/19/16 13:10 Dose: 4 mg Oxycodone HCl (Roxicodone -) 5 mg PO Q6H PRN PRN Reason: PAIN Last Admin: 12/20/16 06:02 Dose: 5 mg Oxycodone HCl (Oxycontin -) 10 mg PO BID [facility] Last Admin: 12/20/16 09:22 Dose: 10 mg Pantoprazole Sodium (Protonix -) 20 mg PO DAILY [facility] Last Admin: 12/20/16 09:22 Dose: 20 mg Polyethylene Glycol (Miralax (For Daily Use) -) 17 gm PO DAILY [facility] Last Admin: 12/20/16 09:25 Dose: 17 gm Spironolactone (Aldactone -) 25 mg PO DAILY [facility] Last Admin: 08/28/17 09:21 Dose: 25 mg - Objective Vital Signs: Vital Signs Temperature 98.3 F 12/20/16 08:53 Pulse Rate 88 12/20/16 08:53 Respiratory Rate 20 12/20/16 08:53 Blood Pressure 133/68 12/20/16 08:53 O2 Sat by Pulse Oximetry (%) 97 12/20/16 09:00 Constitutional: Yes: Calm, Thin Eyes: Yes: WNL HENT: Yes: WNL Neck: Yes: WNL Cardiovascular: Yes: Regular Rate and Rhythm, S1, S2 Respiratory: Yes: CTA Bilaterally Gastrointestinal: Yes: Normal Bowel Sounds, Soft Extremities: Yes: WNL Edema: No Labs: INR, PTT INR 1.18 (0.82-1.09) H 12/16/16 06:00 Problem List - Problems (1) Compression fracture Code(s): [id number] - (2) Intractable low back pain Code(s): M54.5 - LOW BACK PAIN (3) Back pain Code(s): M54.9 - DORSALGIA, UNSPECIFIED Qualifiers: Back pain location: low back pain Chronicity: acute Back pain laterality: midline Sciatica presence: without sciatica Qualified Code(s ): M54.5 - Low back pain (4) COPD (chronic obstructive pulmonary disease) Code(s): J44.9 - CHRONIC OBSTRUCTIVE PULMONARY DISEASE, UNSPECIFIED Qualifiers : Emphysema type: unspecified (5) Dyspnea Code(s): R06.00 - DYSPNEA, UNSPECIFIED Qualifiers: Dyspnea type: dyspnea on exertion Qualified Code(s): R06.09 - Other forms of dyspnea (6) HTN (hypertension) Code(s): I10 - ESSENTIAL (PRIMARY) HYPERTENSION Qualifiers: Hypertension type: essential hypertension Qualified Code(s): I10 - Essential (primary) hypertension (7) Spinal stenosis Code(s): M48.00 - SPINAL STENOSIS, SITE UNSPECIFIED Qualifiers: Spinal region: lumbosacral Qualified Code(s): M48.07 - Spinal stenosis , lumbosacral region (8) DVT (deep venous thrombosis) Code(s): I82.409 - ACUTE EMBOLISM AND THOMBOS UNSP DEEP VN UNSP LOWER EXTREMITY Assessment/Plan IMP LLE DVT LIKELY PROVOKED ADVANCED COPD ON O2 ACUTE ON CHRONIC BACK PAIN MULTIPLE COMPRESSION FXS S/P KYPHOPLASTY HTN PLAN ELIQUIS INHALED BRONCHODILATORS NASAL O2 PAIN MEDS DR HUTTON Problem List - Problems (1) Compression fracture Code(s): [id number] - (2) Intractable low back pain Code(s): M54.5 - LOW BACK PAIN (3) Back pain Code(s): M54.9 - DORSALGIA, UNSPECIFIED Qualifiers: Back pain location: low back pain Chronicity: acute Back pain laterality: midline Sciatica presence: without sciatica Qualified Code(s ): M54.5 - Low back pain (4) COPD (chronic obstructive pulmonary disease) Code(s): J44.9 - CHRONIC OBSTRUCTIVE PULMONARY DISEASE, UNSPECIFIED Qualifiers : Emphysema type: unspecified (5) Dyspnea Code(s): R06.00 - DYSPNEA, UNSPECIFIED Qualifiers: Dyspnea type: dyspnea on exertion Qualified Code(s): R06.09 - Other forms of dyspnea (6) HTN (hypertension) Code(s): I10 - ESSENTIAL (PRIMARY) HYPERTENSION Qualifiers: Hypertension type: essential hypertension Qualified Code(s): I10 - Essential (primary) hypertension (7) Spinal stenosis Code(s): M48.00 - SPINAL STENOSIS, SITE UNSPECIFIED Qualifiers: Spinal region: lumbosacral Qualified Code(s): M48.07 - Spinal stenosis , lumbosacral region (8) DVT (deep venous thrombosis) Code(s): I82.409 - ACUTE EMBOLISM AND THOMBOS UNSP DEEP VN UNSP LOWER EXTREMITY
--- NOTE | 2016-12-20 15:02 | PN ---
Teaching Attending Note Name of Resident: Chang Alexandra ATTENDING PHYSICIAN STATEMENT I saw and evaluated the patient. I reviewed the resident's note and discussed the case with the resident. I agree with the resident's findings and plan as documented. SUBJECTIVE:resting comfortable. no pain at rest only on movement. did not urinate, bladder scan 549 and franklin re-inserted. denies CP, SOB, fever, chills, N/V/C/D OBJECTIVE: Last Vital Signs Temp Pulse Resp BP Pulse Ox 98.5 F 86 20 140/86 97 12/20/16 14:18 12/20/16 14:18 12/20/16 08:53 12/20/16 14:18 12/20/16 10:40 General NAD, thin, frail woman Abdomen soft NT/ND Extremities no edema Back +muscle spasms R lumbar area, +point tenderness. no bone point tenderness ASSESSMENT AND PLAN: 86yo F with PMH chronic low back pain s/p multiple kyphoplasty and multiple compression fractures, and COPD on 2 L NC admitted for intractable pain 1. Intractable pain- improved with long acting oxycodone. using minimal amounts of percocet for breakthrough pain however pt is barely able to move due to pain. still awaiting comment from supervisor painting department. will need OTF as dont believe pt will be able to function at home alone. 2. + LLE DVT- likely provoked due to recent surgery and decreased mobility. on eliquis 3. Urinary retention- bladder scan >500cc. franklin re-inserted. maintain franklin 4. hypokalemia- replete 5. Chronic respiratory failure with hypercapnea due to advanced COPD on home O2 - no signs of acute exacerbation. saturating well on home O2 6. HTN- improved. cont home management 7. DNR 8. medically optimized for discharge. awaiting placement
--- NOTE | 2016-12-20 16:40 | PN ---
Physical Exam: SUBJECTIVE: Patient seen and examined at bed side. she is comfortable at bed, she has pain on movement. she was not able to urinate, franklin re-incerted. she denies any CP, SOB,numbness , tinging, fever, chills, N/V/D. she could not move her bowel for the last 4 days. OBJECTIVE: Vital Signs Period Temp Pulse Resp BP Sys/Solares Pulse Ox Last 24 Hr 98.1 F-98.6 F 74-88 18-20 110-140/54-86 97-98 GENERAL: The patient is awake, alert, and fully oriented, in no acute distress. HEAD: Normal with no signs of trauma. EYES: PERRLA, sclera anicteric, conjunctiva clear. No ptosis. ENT: Ears normal, nares patent, oropharynx clear without exudates, moist mucous membranes. NECK: Trachea midline, full range of motion, supple. LUNGS: Breath sounds equal, clear to auscultation bilaterally, no wheezes, no crackles, no accessory muscle use. HEART: Regular rate and rhythm, S1, S2 without murmur, rub or gallop. ABDOMEN: Soft, nontender, nondistended, normoactive bowel sounds, no guarding, no rebound, no hepatosplenomegaly, no masses. EXTREMITIES: 2+ pulses, warm, well-perfused, no edema. +muscle spasms R lumbar area, +point tenderness. no bone point tenderness NEUROLOGICAL: . Normal speech, gait not observed. PSYCH: Normal mood, normal affect. SKIN: Warm, dry, normal turgor, no rashes or lesions noted Active Medications Generic Name Dose Route Start Last Admin Trade Name Freq PRN Reason Stop Dose Admin Acetaminophen 650 mg 12/18/16 18:18 Tylenol - PO Q6H PRN BACK PAIN Acetaminophen 325 mg 12/18/16 18:18 12/19/16 16:25 Tylenol - PO 325 mg Q6H PRN Administration PAIN Albuterol/Ipratropium 1 amp 12/19/16 00:00 12/20/16 10:45 Duoneb - NEB 1 amp QIDR [facility] Administration Amlodipine Besylate 5 mg 12/19/16 10:00 12/20/16 09:22 Norvasc - PO 5 mg DAILY [facility] Administration Apixaban 5 mg 12/17/16 22:00 12/20/16 09:22 Eliquis - PO 5 mg BID [facility] Administration Baclofen 10 mg 12/17/16 22:00 12/20/16 13:11 Lioresal - PO 10 mg TID [facility] Administration Cholecalciferol 1,000 unit 12/19/16 10:00 12/20/16 09:22 Vitamin D3 - PO 1,000 unit DAILY [facility] Administration Docusate Sodium 100 mg 12/20/16 22:00 Colace - PO TID [facility] Folic Acid 1 mg 12/19/16 10:00 12/20/16 09:21 Folic Acid - PO 1 mg DAILY [facility] Administration Methylnaltrexone [place] 8 mg 12/20/16 16:00 Relistor - SQ DAILY [facility] Ondansetron HCl 4 mg 12/18/16 20:39 12/19/16 13:10 Zofran Injection IVPB 4 mg Q4H PRN Administration NAUSEA AND/OR VOMITING Oxycodone HCl 5 mg 12/18/16 18:18 12/20/16 06:02 Roxicodone - PO 5 mg Q6H PRN Administration PAIN Oxycodone HCl 10 mg 12/19/16 10:00 12/20/16 09:22 Oxycontin - PO 10 mg BID [facility] Administration Pantoprazole Sodium 20 mg 12/19/16 10:00 12/20/16 09:22 Protonix - PO 20 mg DAILY [facility] Administration Polyethylene Glycol 17 gm 12/19/16 20:30 12/20/16 09:25 Miralax (For Daily Use) - PO 17 gm DAILY [facility] Administration Spironolactone 25 mg 12/19/16 10:00 12/20/16 09:21 Aldactone - PO 25 mg DAILY [facility] Administration CBC, BMP 12/18/16 06:00 12/18/16 06:00 ASSESSMENT/PLAN: 86 y/o F with PMH chronic lower back pain, arthritis, osteoperosis with multiple compression fractures and COPD (on 2L NC 02), who presented to the ED with acute on chronic back pain. Pt was admitted to med-surg for intractable back pain. #Intractable back pain secondary to physical exertion- Improved -On Oxycodone 10mg PO BID PRN for pain, morphine has been d/c to determine pain tolerance -To be seen by PT today -Continue baclofen 10mg PO TID for muscle spasms - pain management recommend gabapentin 100mg PO q12h, Tylenol PRN , oxycodone 5 -10mg PO q6h prn for flare up. -No interventional modalities recommended due to her starting a blood thinner for her blood clot.would decrease her pain medicationwhen her flare up passed. -will benefit from sub acute rehab #LLE edema secondary to DVT -positive DVT on sono -most likely due to immobilization and post-surgery -changed from lovenox to eliquis 5mg PO BID # constipatin likely 2/2 opioids vs immobility - continue milralx - colace TID PO -relistor 8 mg SQ daily (opioide antidote) - F/U clinicaly #HTN- d/t pain- controlled today -Continue amlodipine 5mg PO daily -Will increase dose if does not resolve after pain adequately treated -continue home meds Monitor BP # urinary retention -bladder scan 524cc -UCx: negative -Franklin has been re-inserted, maintain franklin #Hypokalemia-resolved #COPD -On 2L NC 02 -Continue Duonebs 1 amp QID F/E/N -Monitor electrolytes -Regular diet Dispo -to be seen by PT today, anticipating d/c - will see how tolerates pain, franklin re-inserted -DNR Visit type - Emergency Visit Emergency Visit: Yes ED Registration Date: 12/19/16 Care time: The patient presented to the Emergency Department on the above date and was hospitalized for further evaluation of their emergent condition. - New Patient This patient is new to me today: Yes Date on this admission: 12/20/16 - Critical Care Critical Care patient: No
[2016-12-20] MEDS: Methylnaltrexone Bromide 12 MG/0.6 ML KIT SQ SCH (17:21)
--- NOTE | 2016-12-20 18:49 | PN ---
Progress Note, Physician Chief Complaint: back pain History of Present Illness: Late entry I had seen the patient on tuesday but the note was written in the wrong chart. The patient at that time was feeling relief with her current regimen of oxycodone. Her pain was primarily in the back with minimal radiating pain in her legs. - Current Medication List Current Medications: Active Medications Acetaminophen (Tylenol -) 650 mg PO Q6H PRN PRN Reason: BACK PAIN Acetaminophen (Tylenol -) 325 mg PO Q6H PRN PRN Reason: PAIN Last Admin: 12/19/16 16:25 Dose: 325 mg Albuterol/Ipratropium (Duoneb -) 1 amp NEB QIDR [facility] Last Admin: 12/20/16 16:50 Dose: 1 amp Amlodipine Besylate (Norvasc -) 5 mg PO DAILY [facility] Last Admin: 12/20/16 09:22 Dose: 5 mg Apixaban (Eliquis -) 5 mg PO BID [facility] Last Admin: 12/20/16 09:22 Dose: 5 mg Baclofen (Lioresal -) 10 mg PO TID [facility] Last Admin: 12/20/16 13:11 Dose: 10 mg Cholecalciferol (Vitamin D3 -) 1,000 unit PO DAILY [facility] Last Admin: 12/20/16 09:22 Dose: 1,000 unit Docusate Sodium (Colace -) 100 mg PO TID [facility] Folic Acid (Folic Acid -) 1 mg PO DAILY [facility] Last Admin: 12/20/16 09:21 Dose: 1 mg Methylnaltrexone [place] (Relistor -) 8 mg SQ DAILY [facility] Last Admin: 12/20/16 17:21 Dose: 8 mg Ondansetron HCl (Zofran Injection) 4 mg IVPB Q4H PRN PRN Reason: NAUSEA AND/OR VOMITING Last Admin: 12/19/16 13:10 Dose: 4 mg Oxycodone HCl (Roxicodone -) 5 mg PO Q6H PRN PRN Reason: PAIN Last Admin: 12/20/16 06:02 Dose: 5 mg Oxycodone HCl (Oxycontin -) 10 mg PO BID [facility] Last Admin: 12/20/16 09:22 Dose: 10 mg Pantoprazole Sodium (Protonix -) 20 mg PO DAILY [facility] Last Admin: 12/20/16 09:22 Dose: 20 mg Polyethylene Glycol (Miralax (For Daily Use) -) 17 gm PO DAILY [facility] Last Admin: 12/20/16 09:25 Dose: 17 gm Spironolactone (Aldactone -) 25 mg PO DAILY [facility] Last Admin: 12/20/16 09:21 Dose: 25 mg - Objective Vital Signs: Vital Signs Temperature 98.5 F 12/20/16 14:18 Pulse Rate 86 12/20/16 14:18 Respiratory Rate 20 12/20/16 08:53 Blood Pressure 140/86 12/20/16 14:18 O2 Sat by Pulse Oximetry (%) 97 12/20/16 10:40 Musculoskeletal: Yes: Back Pain Labs: INR, PTT INR 1.18 (0.82-1.09) H 12/16/16 06:00 Assessment/Plan Back pain secondary to multiple compression fractures and degenerative changes Opioid tolerance 1. THe patient has been on oxycodone for a number of years. She will need higher doses , due to tolerance, intermittently if she has pain flare ups. Even when she was feeling better as an outpatient she still required percocet 5/ 325 3 pills per day It is reasonable to maintain her on oxycontin 10mg PO q12h but she will need breakthrough pain medications oxycodone 5-10mg PO q6h prn pain. Once her pain flare up has passed would decrease her pain medication. Tylenol prn pain Consider gabapentin 100mg PO q12h 2. Bowel regimen 3. No interventional modalities recommended due to her starting a blood thinner for her blood clot. 4. Rehab
[2016-12-20] MEDS: DOCUSATE SODIUM 100 MG CAPSULE (FP) PO SCH (21:42)
[2016-12-20] MEDS: ACETAMINOPHEN 325 MG TABLET (FP) PO PRN (23:04)
[2016-12-21] MEDS: BACLOFEN 10 MG TABLET (FP) PO SCH ×3 (05:01→21:09)
[2016-12-21] MEDS: DOCUSATE SODIUM 100 MG CAPSULE (FP) PO SCH ×3 (05:01→21:08)
[2016-12-21] MEDS: ALBUTEROL SO4 2.5/IPRATROPIUM 0.5 INH SOL 3 ML VIAL.NEB. NEB SCH ×4 (06:00→16:50)
[2016-12-21 08:31] LABS: MCH 31.1 pg (25.7-33.7); MCHC 33.2 g/dl (32.0-36.0); MEAN CELL VOLUME 93.5 fl (80-96); MEAN PLT VOLUME 8.5 fl (7.5-11.1); PLATELET COUNT 295 K/MM3 (134-434); RDW 13.7 % (11.6-15.6); WHITE BLOOD COUNT 6.1 K/mm3 (4.0-10.0)
[2016-12-21 09:00] LABS: ANION GAP 10 (8-16); CALCIUM 9.5 mg/dL (8.5-10.1); CO2 32 mmol/L (21-32); CREATININE 0.4 mg/dL (0.55-1.02); GLUCOSE,RANDOM 110 mg/dL (74-106)
[2016-12-21] MEDS ORDERED: PT OWN MED DRAWER 7, Y5N ONE ×2 (09:52→20:44)
[2016-12-21] MEDS: FOLIC ACID 1 MG TABLET (FP) PO SCH (09:55)
[2016-12-21] MEDS: CHOLECALCIFEROL (VITAMIN D3) 1,000 UNIT TABLET (FP) PO SCH (09:55)
[2016-12-21] MEDS: amLODIPine BESYLATE 5 MG TABLET (FP) PO SCH (09:56)
[2016-12-21] MEDS: Methylnaltrexone Bromide 12 MG/0.6 ML KIT SQ SCH (09:56)
[2016-12-21] MEDS: APIXABAN 5 MG TABLET PO SCH ×2 (09:56→21:09)
[2016-12-21] MEDS: POLYETHYLENE GLYCOL 3350 119 GM BTL PO SCH (09:56)
[2016-12-21] MEDS: SPIRONOLACTONE 25 MG TABLET (FP) PO SCH (09:57)
[2016-12-21] MEDS: PANTOPRAZOLE 20 MG TABLET (FP) PO SCH (09:57)
[2016-12-21] MEDS: oxyCODONE HCL 10 MG SUSTAINED ACTING TABLET PO SCH ×2 (09:57→21:08)
[2016-12-21] MEDS ORDERED: Methylnaltrexone Bromide 12 MG/0.6 ML KIT SQ SCH (10:00)
--- NOTE | 2016-12-21 11:09 | PN ---
Progress Note, Physician History of Present Illness: PULMONARY ALERT,FEELING BETTER,LESS BACK PAIN,-SOB. - Current Medication List Current Medications: Active Medications Acetaminophen (Tylenol -) 650 mg PO Q6H PRN PRN Reason: BACK PAIN Acetaminophen (Tylenol -) 325 mg PO Q6H PRN PRN Reason: PAIN Last Admin: 12/20/16 23:04 Dose: 325 mg Albuterol/Ipratropium (Duoneb -) 1 amp NEB QIDR [facility] Last Admin: 12/21/16 11:05 Dose: 1 amp Amlodipine Besylate (Norvasc -) 5 mg PO DAILY [facility] Last Admin: 12/21/16 09:56 Dose: 5 mg Apixaban (Eliquis -) 5 mg PO BID [facility] Last Admin: 12/21/16 09:56 Dose: 5 mg Baclofen (Lioresal -) 10 mg PO TID [facility] Last Admin: 12/21/16 05:01 Dose: 10 mg Cholecalciferol (Vitamin D3 -) 1,000 unit PO DAILY [facility] Last Admin: 12/21/16 09:55 Dose: 1,000 unit Docusate Sodium (Colace -) 100 mg PO TID [facility] Last Admin: 12/21/16 05:01 Dose: 100 mg Folic Acid (Folic Acid -) 1 mg PO DAILY [facility] Last Admin: 12/21/16 09:55 Dose: 1 mg Methylnaltrexone [place] (Relistor -) 8 mg SQ DAILY [facility] Last Admin: 12/21/16 09:56 Dose: 8 mg Ondansetron HCl (Zofran Injection) 4 mg IVPB Q4H PRN PRN Reason: NAUSEA AND/OR VOMITING Last Admin: 12/19/16 13:10 Dose: 4 mg Oxycodone HCl (Roxicodone -) 5 mg PO Q6H PRN PRN Reason: PAIN Last Admin: 12/20/16 23:04 Dose: 5 mg Oxycodone HCl (Oxycontin -) 10 mg PO BID [facility] Last Admin: 12/21/16 09:57 Dose: 10 mg Pantoprazole Sodium (Protonix -) 20 mg PO DAILY [facility] Last Admin: 12/21/16 09:57 Dose: 20 mg Polyethylene Glycol (Miralax (For Daily Use) -) 17 gm PO DAILY [facility] Last Admin: 12/21/16 09:56 Dose: 17 gm Spironolactone (Aldactone -) 25 mg PO DAILY [facility] Last Admin: 12/21/16 09:57 Dose: 25 mg - Objective Vital Signs: Vital Signs Temperature 97.0 F L 12/21/16 10:00 Pulse Rate 68 12/21/16 10:35 Respiratory Rate 20 12/21/16 10:00 Blood Pressure 143/95 12/21/16 10:00 O2 Sat by Pulse Oximetry (%) 97 12/21/16 10:35 Constitutional: Yes: Calm, Thin HENT: Yes: WNL, Other Cardiovascular: Yes: Regular Rate and Rhythm, S1, S2 Respiratory: Yes: Diminished Gastrointestinal: Yes: Normal Bowel Sounds, Soft Extremities: Yes: WNL Edema: No Labs: CBC, BMP 12/21/16 07:45 12/21/16 07:45 INR, PTT INR 1.18 (0.82-1.09) H 12/16/16 06:00 Problem List - Problems (1) Compression fracture Code(s): [id number] - (2) Intractable low back pain Code(s): M54.5 - LOW BACK PAIN (3) Back pain Code(s): M54.9 - DORSALGIA, UNSPECIFIED Qualifiers: Back pain location: low back pain Chronicity: acute Back pain laterality: midline Sciatica presence: without sciatica Qualified Code(s ): M54.5 - Low back pain (4) COPD (chronic obstructive pulmonary disease) Code(s): J44.9 - CHRONIC OBSTRUCTIVE PULMONARY DISEASE, UNSPECIFIED Qualifiers : Emphysema type: unspecified (5) Dyspnea Code(s): R06.00 - DYSPNEA, UNSPECIFIED Qualifiers: Dyspnea type: dyspnea on exertion Qualified Code(s): R06.09 - Other forms of dyspnea (6) HTN (hypertension) Code(s): I10 - ESSENTIAL (PRIMARY) HYPERTENSION Qualifiers: Hypertension type: essential hypertension Qualified Code(s): I10 - Essential (primary) hypertension (7) Spinal stenosis Code(s): M48.00 - SPINAL STENOSIS, SITE UNSPECIFIED Qualifiers: Spinal region: lumbosacral Qualified Code(s): M48.07 - Spinal stenosis , lumbosacral region (8) DVT (deep venous thrombosis) Code(s): I82.409 - ACUTE EMBOLISM AND THOMBOS UNSP DEEP VN UNSP LOWER EXTREMITY Assessment/Plan IMP LLE DVT LIKELY PROVOKED ADVANCED COPD ON O2 ACUTE ON CHRONIC BACK PAIN MULTIPLE COMPRESSION FXS S/P KYPHOPLASTY HTN PLAN ELIQUIS INHALED BRONCHODILATORS NASAL O2 PAIN MEDS DR HUTTON Problem List - Problems (1) Compression fracture Code(s): [id number] - (2) Intractable low back pain Code(s): M54.5 - LOW BACK PAIN (3) Back pain Code(s): M54.9 - DORSALGIA, UNSPECIFIED Qualifiers: Back pain location: low back pain Chronicity: acute Back pain laterality: midline Sciatica presence: without sciatica Qualified Code(s ): M54.5 - Low back pain (4) COPD (chronic obstructive pulmonary disease) Code(s): J44.9 - CHRONIC OBSTRUCTIVE PULMONARY DISEASE, UNSPECIFIED Qualifiers : Emphysema type: unspecified (5) Dyspnea Code(s): R06.00 - DYSPNEA, UNSPECIFIED Qualifiers: Dyspnea type: dyspnea on exertion Qualified Code(s): R06.09 - Other forms of dyspnea (6) HTN (hypertension) Code(s): I10 - ESSENTIAL (PRIMARY) HYPERTENSION Qualifiers: Hypertension type: essential hypertension Qualified Code(s): I10 - Essential (primary) hypertension (7) Spinal stenosis Code(s): M48.00 - SPINAL STENOSIS, SITE UNSPECIFIED Qualifiers: Spinal region: lumbosacral Qualified Code(s): M48.07 - Spinal stenosis , lumbosacral region (8) DVT (deep venous thrombosis) Code(s): I82.409 - ACUTE EMBOLISM AND THOMBOS UNSP DEEP VN UNSP LOWER EXTREMITY
[2016-12-21] MEDS ORDERED: SENNOSIDES 8.6MG TABLET (FP) PO PRN (11:45)
--- NOTE | 2016-12-21 13:49 | PN ---
Teaching Attending Note Name of Resident: Chang Alexandra ATTENDING PHYSICIAN STATEMENT I saw and evaluated the patient. I reviewed the resident's note and discussed the case with the resident. I agree with the resident's findings and plan as documented. SUBJECTIVE: Patient says her back pain is better. She complains of constipation. OBJECTIVE: Vital Signs Period Temp Pulse Resp BP Sys/Solares Pulse Ox Last 24 Hr 97.0 F-98.7 F 68-98 18-20 126-143/56-95 97-98 HEART: S1S2, RRR LUNGS: Clear ABDOMEN: Soft, non-tender, non-distended, normal BS EXTREMITIES: No edema ASSESSMENT AND PLAN: This is an 86 year old woman with a history of chronic low back pain, OA, osteoporosis, multiple compression fractures and kyphoplasties, oxygen- dependent COPD who presented to the ER with intractable back pain. 1. Chronic low back pain secondary to compression fractures and degenerative disease - Improving - Continue OxyContin, oxycodone as needed, Baclofen - Continue PT - Will need subacute rehab 2. LLE DVT - Continue Eliquis 3. Urinary retention - Maintain Colon 4. Hypokalemia - Improved 5. Chronic hypoxic respiratory failure secondary to COPD - Continue DuoNeb, oxygen 6. HTN - Continue Norvasc, Aldactone 7. Constipation secondary to opiates - Continue Relistor, Colace, Miralax - Senna added
--- NOTE | 2016-12-21 14:06 | PN ---
Physical Exam: SUBJECTIVE: Patient seen and examined at bed side.No acute events over night. she is comfortable at bed, she has pain on movement. she was not able to urinate , franklin re-incerted. she denies any CP, SOB,numbness , tinging, fever, chills, N/V/D. she could not move her bowel for the last 4 days. She has some day dreams or hallucinations but she is fully oriented X3. OBJECTIVE: Vital Signs Period Temp Pulse Resp BP Sys/Solares Pulse Ox Last 24 Hr 97.0 F-98.7 F 68-98 18-20 126-143/56-95 97-98 GENERAL: The patient is awake, alert, and fully oriented, in no acute distress. HEAD: Normal with no signs of trauma. EYES: PERRL, sclera anicteric, conjunctiva clear. No ptosis. ENT: moist mucous membranes. NECK: Trachea midline, full range of motion, supple. LUNGS: Breath sounds equal, clear to auscultation bilaterally, no wheezes, no crackles, no accessory muscle use. HEART: Regular rate and rhythm, S1, S2 without murmur, rub or gallop. ABDOMEN: Soft, nontender, nondistended, normoactive bowel sounds, no guarding, no rebound, no hepatosplenomegaly, no masses. EXTREMITIES: 2+ pulses, warm, well-perfused, no edema. NEUROLOGICAL: Normal speech, gait not observed. PSYCH: Normal mood, normal affect. SKIN: Warm, dry, normal turgor, no rashes or lesions noted Laboratory Results - last 24 hr 12/21/16 12/21/16 07:45 07:45 WBC 6.1 RBC 3.94 Hgb 12.2 Hct 36.8 MCV 93.5 MCH 31.1 MCHC 33.2 RDW 13.7 Plt Count 295 MPV 8.5 Sodium 132 L Potassium 4.6 Chloride 90 L Carbon Dioxide 32 Anion Gap 10 BUN 9 Creatinine 0.4 L Random Glucose 110 H Calcium 9.5 Active Medications Generic Name Dose Route Start Last Admin Trade Name Freq PRN Reason Stop Dose Admin Acetaminophen 650 mg 12/18/16 18:18 Tylenol - PO Q6H PRN BACK PAIN Acetaminophen 325 mg 12/18/16 18:18 12/20/16 23:04 Tylenol - PO 325 mg Q6H PRN Administration PAIN Albuterol/Ipratropium 1 amp 12/19/16 00:00 12/21/16 11:05 Duoneb - NEB 1 amp QIDR [facility] Administration Amlodipine Besylate 5 mg 12/19/16 10:00 12/21/16 09:56 Norvasc - PO 5 mg DAILY [facility] Administration Apixaban 5 mg 12/17/16 22:00 12/21/16 09:56 Eliquis - PO 5 mg BID [facility] Administration Baclofen 10 mg 12/17/16 22:00 12/21/16 14:03 Lioresal - PO 10 mg TID [facility] Administration Cholecalciferol 1,000 unit 12/19/16 10:00 12/21/16 09:55 Vitamin D3 - PO 1,000 unit DAILY [facility] Administration Docusate Sodium 100 mg 12/20/16 22:00 12/21/16 14:03 Colace - PO 100 mg TID [facility] Administration Folic Acid 1 mg 12/19/16 10:00 12/21/16 09:55 Folic Acid - PO 1 mg DAILY [facility] Administration Methylnaltrexone [place] 8 mg 12/20/16 16:00 12/21/16 09:56 Relistor - SQ 8 mg DAILY [facility] Administration Ondansetron HCl 4 mg 12/18/16 20:39 12/19/16 13:10 Zofran Injection IVPB 4 mg Q4H PRN Administration NAUSEA AND/OR VOMITING Oxycodone HCl 5 mg 12/18/16 18:18 12/20/16 23:04 Roxicodone - PO 5 mg Q6H PRN Administration PAIN Oxycodone HCl 10 mg 12/19/16 10:00 12/21/16 09:57 Oxycontin - PO 10 mg BID [facility] Administration Pantoprazole Sodium 20 mg 12/19/16 10:00 12/21/16 09:57 Protonix - PO 20 mg DAILY [facility] Administration Polyethylene Glycol 17 gm 12/19/16 20:30 12/21/16 09:56 Miralax (For Daily Use) - PO 17 gm DAILY [facility] Administration Senna 2 tab 12/21/16 11:45 Senna - PO HS PRN CONSTIPATION Spironolactone 25 mg 12/19/16 10:00 12/21/16 09:57 Aldactone - PO 25 mg DAILY [facility] Administration ASSESSMENT/PLAN: 86 y/o F with PMH chronic lower back pain, arthritis, osteoperosis with multiple compression fractures and COPD (on 2L NC 02), who presented to the ED with acute on chronic back pain. Pt was admitted to med-surg for intractable back pain. #Intractable back pain secondary to physical exertion- Improved -On Oxycodone 10mg PO BID PRN for pain, morphine has been d/c to determine pain tolerance -To be seen by PT today -Continue baclofen 10mg PO TID for muscle spasms - pain management recommend gabapentin 100mg PO q12h, Tylenol PRN , oxycodone 5 -10mg PO q6h prn for flare up. -No interventional modalities recommended due to her starting a blood thinner for her blood clot.would decrease her pain medicationwhen her flare up passed. -will benefit from sub acute rehab #LLE edema secondary to DVT -positive DVT on sono -most likely due to immobilization and post-surgery -changed from lovenox to eliquis 5mg PO BID # constipatin likely 2/2 opioids vs immobility - continue milralx - colace TID PO -relistor 8 mg SQ daily (opioide antidote) -Strat senna X2 HS - F/U clinicaly #HTN- d/t pain- controlled today -Continue amlodipine 5mg PO daily -Will increase dose if does not resolve after pain adequately treated -continue home meds Monitor BP # urinary retention -bladder scan 524cc -UCx: negative -Franklin has been re-inserted, maintain franklin #Hypokalemia-resolved #COPD -On 2L NC 02 -Continue Duonebs 1 amp QID F/E/N -Monitor electrolytes -Regular diet Dispo -to be seen by PT today, anticipating d/c - will see how tolerates pain, franklin re-inserted -DNR
[2016-12-21] MEDS: oxyCODONE HCL 5 MG TABLET PO PRN (16:12)
[2016-12-21] MEDS: ACETAMINOPHEN 325 MG TABLET (FP) PO PRN (16:15)
[2016-12-21] MEDS: SODIUM CHLORIDE 1,000 ML IV SCH (18:25)
[2016-12-22] MEDS: ALBUTEROL SO4 2.5/IPRATROPIUM 0.5 INH SOL 3 ML VIAL.NEB. NEB SCH ×4 (00:10→17:07)
[2016-12-22] MEDS: ACETAMINOPHEN 325 MG TABLET (FP) PO PRN (04:32)
[2016-12-22] MEDS: BACLOFEN 10 MG TABLET (FP) PO SCH ×3 (05:49→21:02)
[2016-12-22] MEDS: DOCUSATE SODIUM 100 MG CAPSULE (FP) PO SCH ×3 (05:49→21:02)
[2016-12-22 08:52] LABS: ANION GAP 6 (8-16); CO2 37 mmol/L (21-32); CREATININE 0.4 mg/dL (0.55-1.02); GLUCOSE,RANDOM 102 mg/dL (74-106)
[2016-12-22] MEDS ORDERED: PT OWN MED DRAWER 7, Y5N ONE (09:42)
[2016-12-22] MEDS: CHOLECALCIFEROL (VITAMIN D3) 1,000 UNIT TABLET (FP) PO SCH (09:45)
[2016-12-22] MEDS: FOLIC ACID 1 MG TABLET (FP) PO SCH (09:45)
[2016-12-22] MEDS: amLODIPine BESYLATE 5 MG TABLET (FP) PO SCH (09:45)
[2016-12-22] MEDS: APIXABAN 5 MG TABLET PO SCH ×2 (09:45→21:02)
[2016-12-22] MEDS: Methylnaltrexone Bromide 12 MG/0.6 ML KIT SQ SCH (09:45)
[2016-12-22] MEDS: oxyCODONE HCL 10 MG SUSTAINED ACTING TABLET PO SCH ×2 (09:46→21:02)
[2016-12-22] MEDS: PANTOPRAZOLE 20 MG TABLET (FP) PO SCH (09:46)
[2016-12-22] MEDS: POLYETHYLENE GLYCOL 3350 119 GM BTL PO SCH (09:46)
[2016-12-22] MEDS: SPIRONOLACTONE 25 MG TABLET (FP) PO SCH (09:46)
--- NOTE | 2016-12-22 11:09 | PN ---
Progress Note (short form) - Note Progress Note: PULMONARY AWAKE/ALERT/PAIN CONTINUES BUT LESS VSS ANICTERIC DISTANT B/L BREATH SOUNDS S1S2 BS+ SOFT NO EDEMA LABS/MEDS/NOTES/IMAGING REVIEWED IMP LLE DVT LIKELY PROVOKED ADVANCED COPD ON O2 ACUTE ON CHRONIC BACK PAIN MULTIPLE COMPRESSION FXS S/P KYPHOPLASTY HTN PLAN ELIQUIS INHALED BRONCHODILATORS NASAL O2 PAIN MEDS SNF/REHAB Daria DIOR MD
[2016-12-22] MEDS ORDERED: SODIUM PHOSPHATE/NA BIPHOS 133 ML ENEMA PR ONE (11:10)
--- NOTE | 2016-12-22 12:22 | PN ---
Teaching Attending Note Name of Resident: Chang Alexandra ATTENDING PHYSICIAN STATEMENT I saw and evaluated the patient. I reviewed the resident's note and discussed the case with the resident. I agree with the resident's findings and plan as documented. SUBJECTIVE: OBJECTIVE: Vital Signs Period Temp Pulse Resp BP Sys/Solares Pulse Ox Last 24 Hr 98.2 F-100.0 F 78-95 20-20 127-153/55-82 98-99 ASSESSMENT AND PLAN:
--- NOTE | 2016-12-22 17:00 | PN ---
Physical Exam: SUBJECTIVE: Patient seen and examined at bed side. No acute events over night. She denies chest pain, SOB, N/V/D. She is waiting for placement. OBJECTIVE: Vital Signs Period Temp Pulse Resp BP Sys/Solares Pulse Ox Last 24 Hr 97.6 F-100.0 F 78-89 20-20 126-153/55-82 98-99 GENERAL: The patient is awake, alert, and fully oriented, in no acute distress. HEAD: Normal with no signs of trauma. EYES: PERRL, extraocular movements intact, sclera anicteric, conjunctiva clear. No ptosis. ENT: moist mucous membranes. NECK: Trachea midline, full range of motion, supple. LUNGS: Breath sounds equal, clear to auscultation bilaterally, no wheezes, no crackles, no accessory muscle use. HEART: Regular rate and rhythm, S1, S2 without murmur, rub or gallop. ABDOMEN: Soft, nontender, nondistended, normoactive bowel sounds, no guarding, no rebound, no hepatosplenomegaly, no masses. EXTREMITIES: 2+ pulses, warm, well-perfused, no edema. pain on movement. NEUROLOGICAL: Normal speech, gait not observed. PSYCH: Normal mood, normal affect. SKIN: Warm, dry, normal turgor, no rashes or lesions noted Laboratory Results - last 24 hr 12/22/16 08:00 Sodium 134 L Potassium 4.3 Chloride 91 L Carbon Dioxide 37 H Anion Gap 6 L BUN 7 D Creatinine 0.4 L Random Glucose 102 Calcium 9.0 Active Medications Generic Name Dose Route Start Last Admin Trade Name Freq PRN Reason Stop Dose Admin Acetaminophen 650 mg 12/18/16 18:18 12/22/16 04:32 Tylenol - PO 650 mg Q6H PRN Administration BACK PAIN Acetaminophen 325 mg 12/18/16 18:18 12/21/16 16:15 Tylenol - PO 325 mg Q6H PRN Administration PAIN Albuterol/Ipratropium 1 amp 12/19/16 00:00 12/22/16 11:14 Duoneb - NEB 1 amp QIDR LILLIANA Administration Amlodipine Besylate 5 mg 12/19/16 10:00 12/22/16 09:45 Norvasc - PO 5 mg DAILY LILLIANA Administration Apixaban 5 mg 12/17/16 22:00 12/22/16 09:45 Eliquis - PO 5 mg BID LILLIANA Administration Baclofen 10 mg 12/17/16 22:00 12/22/16 15:27 Lioresal - PO 10 mg TID LILLIANA Administration Cholecalciferol 1,000 unit 12/19/16 10:00 12/22/16 09:45 Vitamin D3 - PO 1,000 unit DAILY LILLIANA Administration Docusate Sodium 100 mg 12/20/16 22:00 12/22/16 15:27 Colace - PO 100 mg TID LILLIANA Administration Folic Acid 1 mg 12/19/16 10:00 12/22/16 09:45 Folic Acid - PO 1 mg DAILY LILLIANA Administration Sodium Chloride 1,000 mls @ 42 mls/hr 12/21/16 17:15 12/21/16 18:25 Normal Saline - IV 42 mls/hr ASDIR LILLIANA Administration Methylnaltrexone [place] 8 mg 12/20/16 16:00 12/22/16 09:45 Relistor - SQ 8 mg DAILY LILLIANA Administration Ondansetron HCl 4 mg 12/18/16 20:39 12/19/16 13:10 Zofran Injection IVPB 4 mg Q4H PRN Administration NAUSEA AND/OR VOMITING Oxycodone HCl 10 mg 12/19/16 10:00 12/22/16 09:46 Oxycontin - PO 10 mg BID LILLIANA Administration Pantoprazole Sodium 20 mg 12/19/16 10:00 12/22/16 09:46 Protonix - PO 20 mg DAILY LILLIANA Administration Polyethylene Glycol 17 gm 12/19/16 20:30 12/22/16 09:46 Miralax (For Daily Use) - PO 17 gm DAILY LILLIANA Administration Senna 2 tab 12/21/16 11:45 Senna - PO HS PRN CONSTIPATION Spironolactone 25 mg 12/19/16 10:00 12/22/16 09:46 Aldactone - PO 25 mg DAILY LILLIANA Administration ASSESSMENT/PLAN: 86 y/o F with PMH chronic lower back pain, arthritis, osteoperosis with multiple compression fractures and COPD (on 2L NC 02), who presented to the ED with acute on chronic back pain. Pt was admitted to med-surg for intractable back pain. #Intractable back pain secondary to physical exertion- Improved -On Oxycodone 10mg PO BID PRN for pain, morphine has been d/c to determine pain tolerance -To be seen by PT today -Continue baclofen 10mg PO TID for muscle spasms - pain management recommend gabapentin 100mg PO q12h, Tylenol PRN , oxycodone 5 -10mg PO q6h prn for flare up. -No interventional modalities recommended due to her starting a blood thinner for her blood clot.would decrease her pain medicationwhen her flare up passed. -will benefit from sub acute rehab #LLE edema secondary to DVT -positive DVT on sono -most likely due to immobilization and post-surgery -changed from lovenox to eliquis 5mg PO BID # constipatin likely 2/2 opioids vs immobility - continue milralx - colace TID PO -relistor 8 mg SQ daily (opioide antidote) -Strat senna X2 HS - was able to move her bowel after fleet enema - F/U clinicaly #HTN- d/t pain- controlled today -Continue amlodipine 5mg PO daily -Will increase dose if does not resolve after pain adequately treated -continue home meds Monitor BP # urinary retention -bladder scan 524cc -UCx: negative -Franklin has been re-inserted, maintain franklin #Hypokalemia-resolved #COPD -On 2L NC 02 -Continue Duonebs 1 amp QID F/E/N -Monitor electrolytes -Regular diet Dispo - seen by PT , anticipating d/c - will see how tolerates pain, franklin re-inserted -DNR Visit type - Emergency Visit Emergency Visit: Yes ED Registration Date: 12/19/16 Care time: The patient presented to the Emergency Department on the above date and was hospitalized for further evaluation of their emergent condition. - New Patient This patient is new to me today: No - Critical Care Critical Care patient: No
[2016-12-22] MEDS: SODIUM CHLORIDE 1,000 ML IV SCH (19:05)
[2016-12-23] MEDS: ALBUTEROL SO4 2.5/IPRATROPIUM 0.5 INH SOL 3 ML VIAL.NEB. NEB SCH ×4 (00:05→18:28)
[2016-12-23] MEDS: ACETAMINOPHEN 325 MG TABLET (FP) PO PRN ×2 (06:27→17:55)
[2016-12-23] MEDS: BACLOFEN 10 MG TABLET (FP) PO SCH ×2 (06:28→13:50)
[2016-12-23] MEDS: DOCUSATE SODIUM 100 MG CAPSULE (FP) PO SCH ×2 (06:28→13:50)
[2016-12-23] MEDS ORDERED: PT OWN MED DRAWER 7, Y5N ONE (09:38)
[2016-12-23] MEDS: Methylnaltrexone Bromide 12 MG/0.6 ML KIT SQ SCH (09:44)
[2016-12-23] MEDS: CHOLECALCIFEROL (VITAMIN D3) 1,000 UNIT TABLET (FP) PO SCH (09:44)
[2016-12-23] MEDS: SPIRONOLACTONE 25 MG TABLET (FP) PO SCH (09:44)
[2016-12-23] MEDS: FOLIC ACID 1 MG TABLET (FP) PO SCH (09:44)
[2016-12-23] MEDS: APIXABAN 5 MG TABLET PO SCH (09:44)
[2016-12-23] MEDS: oxyCODONE HCL 10 MG SUSTAINED ACTING TABLET PO SCH (09:44)
[2016-12-23] MEDS: PANTOPRAZOLE 20 MG TABLET (FP) PO SCH (09:44)
[2016-12-23] MEDS: POLYETHYLENE GLYCOL 3350 119 GM BTL PO SCH (09:45)
[2016-12-23] MEDS: amLODIPine BESYLATE 5 MG TABLET (FP) PO SCH (09:45)
[2016-12-23 14:38] VITALS: BP 122/48; PULSE 94; TEMP 97.9
--- NOTE | 2016-12-23 15:00 | PN ---
Progress Note, Physician History of Present Illness: pulmonary alert,c/o back pain ,-sob - Current Medication List Current Medications: Active Medications Acetaminophen (Tylenol -) 650 mg PO Q6H PRN PRN Reason: BACK PAIN Last Admin: 12/23/16 06:27 Dose: 650 mg Acetaminophen (Tylenol -) 325 mg PO Q6H PRN PRN Reason: PAIN Last Admin: 12/21/16 16:15 Dose: 325 mg Albuterol/Ipratropium (Duoneb -) 1 amp NEB QIDR [facility] Last Admin: 12/23/16 11:16 Dose: 1 amp Amlodipine Besylate (Norvasc -) 5 mg PO DAILY [facility] Last Admin: 12/23/16 09:45 Dose: 5 mg Apixaban (Eliquis -) 5 mg PO BID [facility] Last Admin: 12/23/16 09:44 Dose: 5 mg Baclofen (Lioresal -) 10 mg PO TID [facility] Last Admin: 12/23/16 13:50 Dose: 10 mg Cholecalciferol (Vitamin D3 -) 1,000 unit PO DAILY [facility] Last Admin: 12/23/16 09:44 Dose: 1,000 unit Docusate Sodium (Colace -) 100 mg PO TID [facility] Last Admin: 12/23/16 13:50 Dose: 100 mg Folic Acid (Folic Acid -) 1 mg PO DAILY [facility] Last Admin: 12/23/16 09:44 Dose: 1 mg Sodium Chloride (Normal Saline -) 1,000 mls @ 42 mls/hr IV ASDIR [facility] Last Admin: 12/22/16 19:05 Dose: 42 mls/hr Methylnaltrexone [place] (Relistor -) 8 mg SQ DAILY [facility] Last Admin: 12/23/16 09:44 Dose: 8 mg Ondansetron HCl (Zofran Injection) 4 mg IVPB Q4H PRN PRN Reason: NAUSEA AND/OR VOMITING Last Admin: 12/19/16 13:10 Dose: 4 mg Oxycodone HCl (Oxycontin -) 10 mg PO BID [facility] Last Admin: 12/23/16 09:44 Dose: 10 mg Pantoprazole Sodium (Protonix -) 20 mg PO DAILY [facility] Last Admin: 12/23/16 09:44 Dose: 20 mg Polyethylene Glycol (Miralax (For Daily Use) -) 17 gm PO DAILY [facility] Last Admin: 12/23/16 09:45 Dose: 17 gm Senna (Senna -) 2 tab PO HS PRN PRN Reason: CONSTIPATION Spironolactone (Aldactone -) 25 mg PO DAILY [facility] Last Admin: 12/23/16 09:44 Dose: 25 mg - Objective Vital Signs: Vital Signs Temperature 97.9 F 12/23/16 14:36 Pulse Rate 94 H 12/23/16 14:36 Respiratory Rate 20 12/23/16 08:00 Blood Pressure 122/48 12/23/16 14:36 O2 Sat by Pulse Oximetry (%) 99 12/23/16 11:15 Constitutional: Yes: Calm, Thin Eyes: Yes: WNL HENT: Yes: WNL Neck: Yes: WNL Cardiovascular: Yes: Regular Rate and Rhythm, S1, S2 Respiratory: Yes: Diminished Gastrointestinal: Yes: Normal Bowel Sounds, Soft Extremities: Yes: WNL Edema: No Labs: CBC, BMP 12/21/16 07:45 Problem List - Problems (1) Compression fracture Code(s): [id number] - (2) Intractable low back pain Code(s): M54.5 - LOW BACK PAIN (3) Back pain Code(s): M54.9 - DORSALGIA, UNSPECIFIED Qualifiers: Back pain location: low back pain Chronicity: acute Back pain laterality: midline Sciatica presence: without sciatica Qualified Code(s ): M54.5 - Low back pain (4) COPD (chronic obstructive pulmonary disease) Code(s): J44.9 - CHRONIC OBSTRUCTIVE PULMONARY DISEASE, UNSPECIFIED Qualifiers : Emphysema type: unspecified (5) Dyspnea Code(s): R06.00 - DYSPNEA, UNSPECIFIED Qualifiers: Dyspnea type: dyspnea on exertion Qualified Code(s): R06.09 - Other forms of dyspnea (6) HTN (hypertension) Code(s): I10 - ESSENTIAL (PRIMARY) HYPERTENSION Qualifiers: Hypertension type: essential hypertension Qualified Code(s): I10 - Essential (primary) hypertension (7) Spinal stenosis Code(s): M48.00 - SPINAL STENOSIS, SITE UNSPECIFIED Qualifiers: Spinal region: lumbosacral Qualified Code(s): M48.07 - Spinal stenosis , lumbosacral region (8) DVT (deep venous thrombosis) Code(s): I82.409 - ACUTE EMBOLISM AND THOMBOS UNSP DEEP VN UNSP LOWER EXTREMITY Assessment/Plan IMP LLE DVT LIKELY PROVOKED ADVANCED COPD ON O2 ACUTE ON CHRONIC BACK PAIN MULTIPLE COMPRESSION FXS S/P KYPHOPLASTY HTN PLAN ELIQUIS INHALED BRONCHODILATORS NASAL O2 PAIN MEDS DR HUTTON Problem List - Problems (1) Compression fracture Code(s): [id number] - (2) Intractable low back pain Code(s): M54.5 - LOW BACK PAIN (3) Back pain Code(s): M54.9 - DORSALGIA, UNSPECIFIED Qualifiers: Back pain location: low back pain Chronicity: acute Back pain laterality: midline Sciatica presence: without sciatica Qualified Code(s ): M54.5 - Low back pain (4) COPD (chronic obstructive pulmonary disease) Code(s): J44.9 - CHRONIC OBSTRUCTIVE PULMONARY DISEASE, UNSPECIFIED Qualifiers : Emphysema type: unspecified (5) Dyspnea Code(s): R06.00 - DYSPNEA, UNSPECIFIED Qualifiers: Dyspnea type: dyspnea on exertion Qualified Code(s): R06.09 - Other forms of dyspnea (6) HTN (hypertension) Code(s): I10 - ESSENTIAL (PRIMARY) HYPERTENSION Qualifiers: Hypertension type: essential hypertension Qualified Code(s): I10 - Essential (primary) hypertension (7) Spinal stenosis Code(s): M48.00 - SPINAL STENOSIS, SITE UNSPECIFIED Qualifiers: Spinal region: lumbosacral Qualified Code(s): M48.07 - Spinal stenosis , lumbosacral region (8) DVT (deep venous thrombosis) Code(s): I82.409 - ACUTE EMBOLISM AND THOMBOS UNSP DEEP VN UNSP LOWER EXTREMITY
--- NOTE | 2016-12-23 15:05 | PN ---
Teaching Attending Note Name of Resident: Chang Alexandra ATTENDING PHYSICIAN STATEMENT I saw and evaluated the patient. I reviewed the resident's note and discussed the case with the resident. I agree with the resident's findings and plan as documented. SUBJECTIVE: OBJECTIVE: Vital Signs Period Temp Pulse Resp BP Sys/Solares Pulse Ox Last 24 Hr 97.9 F-98.4 F 83-94 20-29 118-150/48-77 98-99 ASSESSMENT AND PLAN:
[2016-12-23] MEDS: SODIUM CHLORIDE 1,000 ML IV SCH (16:30)
--- NOTE | 2016-12-23 18:55 | DS ---
Physical Exam: SUBJECTIVE: Patient seen and examined OBJECTIVE: Vital Signs Period Temp Pulse Resp BP Sys/Solares Pulse Ox Last 24 Hr 97.9 F-98.4 F 83-94 20-29 118-150/48-77 98-99 PHYSICAL EXAM GENERAL: The patient is awake, alert, and fully oriented, in no acute distress. HEAD: Normal with no signs of trauma. EYES: PERRL, extraocular movements intact, sclera anicteric, conjunctiva clear. ENT: Ears normal, nares patent, oropharynx clear without exudates, moist mucous membranes. NECK: Trachea midline, full range of motion, supple. LUNGS: Breath sounds equal, clear to auscultation bilaterally, no wheezes, no crackles, no accessory muscle use. HEART: Regular rate and rhythm, S1, S2 without murmur, rub or gallop. ABDOMEN: Soft, nontender, nondistended, normoactive bowel sounds, no guarding, no rebound, no hepatosplenomegaly, no masses. EXTREMITIES: 2+ pulses, warm, well-perfused, no edema. NEUROLOGICAL: Cranial nerves II through XII grossly intact. Normal speech, gait not observed. PSYCH: Normal mood, normal affect. SKIN: Warm, dry, normal turgor, no rashes or lesions noted. LABS HOSPITAL COURSE: Date of Admission:12/19/16 Date of Discharge: 12/23/16 86 y/o F with PMH chronic lower back pain, arthritis, osteoperosis with multiple compression fractures and COPD (on 2L NC 02), who presented to the ED with acute on chronic back pain. Pt was admitted to med-surg for intractable back pain. Intractable back pain Improved with pain control Oxycodone 10 mg , Baclofen , and Gabapentin with intervention recomended at this time.Patient was found to have DVT on LLE was treated with Eliquis 5mg . Patient was not able to urinate and Catheter was inserted and she was discharged with the catheter after she failed passing urine. Patient BP was controlled with Amlodipine 5 mg PO . Patient was evaluated by PT and she is table to go the nursing facility. Discharge instruction was send to the rehab facility. Patient needs to F/U with her PCP within one week. Patient needs to F/U with urologist within one week for urinary catheter. Instruction was explained to the patient. Discharge Summary Reason For Visit: COMPRESSION FRACTURE INTRACTABLE LOW BACK Current Active Problems Compression fracture (Acute) DVT (deep venous thrombosis) (Acute) DVT of axillary vein, acute left (Acute) Urinary retention (Acute) Intractable low back pain (Chronic) Condition: Stable - Instructions Diet, Activity, Other Instructions: You were recently in the hospital for severe lower back pain. Please exercise caution when resuming activity. We recommend that you continue subacute rehab to help you strengthen your muscles. You will need to see the urologist at the rehab center to manage your franklin catheter (urinary catheter) or you may see Dr. Peter to manage it. You may take the following medications for pain: oxycodone 10 mg twice a day and baclofen 10 mg three times a day. For constipation you may take miralax and colace. You will also be started on a new medication, eliquis, a blood thinner to be taken twice a day. You may continue your other home medications. Please follow-up with your primary care doctor, Dr. Segura and your pain management doctor, Dr. Guillaume, within a week. If you develop any shortness of breath, chest pain, or any new symptoms, please go to the hospital. We hope you feel better soon! Referrals: Vincent Guillaume MD [Staff Physician] - Colin Segura MD [Primary Care Provider] - Ike Hooker MD [Staff Physician] - Disposition: [facility] - Home Medications Comprehensive Discharge Medication List: Ambulatory Orders Cyanocobalamin Vit B-12 Inj. [Vitamin B12 Injection -] 1,000 mcg IJ MONTHLY #0 09/21/13 Folic Acid - 1 mg PO DAILY #0 09/21/13 Amlodipine Besylate 5 mg PO DAILY 08/03/16 Spironolactone 25 mg PO DAILY 08/03/16 Omeprazole [Prilosec] 20 mg PO DAILY 12/15/16 Cholecalciferol (Vitamin D3) [Vitamin D3 -] 2,000 unit PO DAILY 12/16/16 Acetaminophen [Tylenol .Regular Strength -] 325 mg PO Q6H PRN #0 tablet Apixaban [Eliquis -] 5 mg PO BID tablet 12/23/16 Baclofen [Lioresal -] 10 mg PO TID tablet 12/23/16 Cholecalciferol (Vitamin D3) [Vitamin D3 -] 1,000 unit PO DAILY tab 12/23/16 Docusate Sodium [Colace -] 100 mg PO DAILY #30 capsule 12/23/16 Methylnaltrexone [place] [Relistor -] 8 mg SQ DAILY kit 12/23/16 Oxycodone HCl [Oxycontin] 10 mg PO BID #60 tab.er.12h MDD 2 TAB 12/23/16 Polyethylene Glycol 3350 [Miralax 119 gm Btl -] 17 gm PO DAILY bottle 12/23/16 - Discharge Referral Referred to [facility] No
== END 2016-12-23 18:56 | DRG 300 ==
LOC: JER 18:08 → UNDOADMOB 12-16 01:34 → JERBED 12-16 01:34 → INTOOBSV 12-16 01:34 → OBSVTOIN 12-16 01:34 → UNDOADMOB 12-16 02:13 → JERBED 12-16 02:13 → INTOOBSV 12-16 02:13 → JERBED 12-16 05:16 → J4S 12-16 05:16 → JERBED 12-17 02:24 → J4S 12-17 02:24 → J6S 12-18 18:22 → OBSVTOIN 12-19 10:55
PROVIDERS: ADMIT Internal Medicine; ATTEND Internal Medicine
PROC: 3E0F7GC Introduction of Other Therapeutic Substance into Respiratory Tract, Via Natural or Artificial Opening (ICD-10-PCS; principal; 2016-12-19)
PROC: 0T9B70Z Drainage of Bladder with Drainage Device, Via Natural or Artificial Opening (ICD-10-PCS; 2016-12-20)
DX: I82.412 Acute embolism and thrombosis of left femoral vein (principal); J96.12 Chronic respiratory failure with hypercapnia; I82.432 Acute embolism and thrombosis of left popliteal vein; E87.6 Hypokalemia; M80.88XS Other osteoporosis with current pathological fracture, vertebra(e), sequela; Z87.891 Personal history of nicotine dependence; Z96.641 Presence of right artificial hip joint; M48.06 Spinal stenosis, lumbar region; J44.9 Chronic obstructive pulmonary disease, unspecified; I10 Essential (primary) hypertension; M54.9 Dorsalgia, unspecified; E78.00 Pure hypercholesterolemia, unspecified; Z66 Do not resuscitate; N32.89 Other specified disorders of bladder; R33.9 Retention of urine, unspecified; Z99.81 Dependence on supplemental oxygen; K59.03 Drug induced constipation; T40.2X5A Adverse effect of other opioids, initial encounter
CPT/HCPCS: 36415; 71010-TC; 72131-TC; 80048; 80053; 81003; 81015; 85025; 85027; 85610; 87086; 93005; 93010; 93970-TC; 94010; 94640; 97116-GP; 99284-25; G0378; J0475

== ENCOUNTER 2018-12-16 11:58 | Emergency (ER) | payer BC ==
[2018-12-16 12:06] VITALS: BP 195/69; PULSE 62; TEMP 98.2; BMI 16.1
[2018-12-16] MEDS ORDERED: POTASSIUM CHLORIDE TABS 10 MEQ TABLET.ER (FP) PO ONE (13:20)
[2018-12-16] MEDS ORDERED: POTASSIUM CHLORIDE ORAL LIQUID 20 MEQ/15 ML ONE (13:43)
[2018-12-16 13:53] LABS: BASO % 0.5 % (0-2.0); EOS % 0.1 % (0-4.5); HEMATOCRIT 31.6 % (32.4-45.2); HEMOGLOBIN 10.3 GM/dL (10.7-15.3); LYMPH % 10.9 % (8-40); MCH 26.9 pg (25.7-33.7); MCHC 32.5 g/dl (32.0-36.0); MEAN CELL VOLUME 82.8 fl (80-96); MEAN PLT VOLUME 8.2 fl (7.5-11.1); MONO % 5.7 % (3.8-10.2); NEUT % 82.8 % (42.8-82.8); RBC 3.82 M/mm3 (3.60-5.2); RDW 19.1 % (11.6-15.6); WHITE BLOOD COUNT 4.7 K/mm3 (4.0-10.0)
[2018-12-16 14:01] LABS: PLATELET COUNT 355 K/MM3 (134-434)
[2018-12-16 14:39] LABS: BILIRUBIN,TOTAL 0.3 mg/dL (0.2-1); BLOOD UREA NITROGEN 6.6 mg/dL (7-18); CALCIUM 8.7 mg/dL (8.5-10.1); CREATININE 0.6 mg/dL (0.55-1.3); MAGNESIUM 1.8 mg/dL (1.8-2.4); POTASSIUM 3.2 mmol/L (3.5-5.1); TOT PROT 6.9 g/dl (6.4-8.2)
--- NOTE | 2018-12-16 14:52 | PDOC ---
History of Present Illness - General Chief Complaint: Revisit, Lab Variance Stated Complaint: ABNORMAL BLOOD WORK Time Seen by Provider: 12/16/18 12:19 - History of Present Illness Initial Comments: 12/16/18 22:36 88F Arthritis, HTN, HLD, multiple compression fractures of lumbar/sacral spine, chronic back pain, pancreatic ulcers, sent from Urgent Care for hypokalemia. Patient recently diagnosed with UTi, had one dose of Ciprofloxacin last night, this morning woke up with acute on chronic tremulousness of the legs. Went to the urgent care who checked electrolytes and found patient to be hypokalemic at 2.6. UA was normal as per Urgent care records. UC EKG show bifascicular block. Patient however is now asymptomatic. PCP: Dr. Wright Past History - Past Medical History Allergies/Adverse Reactions: Allergies Allergy/AdvReac Type Severity Reaction Status Date / Time Penicillins Allergy Verified 12/16/18 12:04 FENTANYL PATCH Allergy Intermediate PASSING OUT Uncoded 12/16/18 12:04 Home Medications: Ambulatory Orders Cholecalciferol (Vitamin D3) [Vitamin D3 -] 2,000 unit PO DAILY 12/16/16 Acetaminophen [Tylenol .Regular Strength -] 325 mg PO Q6H PRN #0 tablet Oxycodone HCl [Oxycontin] 10 mg PO BID #60 tab.er.12h MDD 2 TAB 12/23/16 Folic Acid 1 mg PO DAILY 03/08/17 Gabapentin 100 mg PO HS 03/08/17 Oxycodone HCl/Acetaminophen [Percocet 5-325 mg Tablet] 1 tab PO BID PRN Potassium Chloride [K-Dur -] 10 meq PO BID 03/11/17 Albuterol Sulfate [Proair Respiclick] 90 mcg IH Q6H PRN #1 aer.pow.[email or web address] 03/12/17 Amlodipine Besylate [Norvasc -] 2.5 mg PO DAILY #30 tablet 03/12/17 Medical Supply, Miscellaneous [Blood Pressure Cuff] 1 each MC DAILY #1 each Apixaban [Eliquis] 5 mg PO BID #60 tablet 03/13/17 Anemia: Yes (pernicious) Cancer: No Cardiac Disorders: No CVA: No COPD: Yes (o2 dep) CHF: No Dementia: No GI Disorders: Yes (colitis, pancreatitis, sbo, ulcer) Disorders: Yes (uti) HTN: Yes Hypercholesterolemia: Yes Liver Disease: No Seizures: No Thyroid Disease: No - Surgical History Abdominal Surgery: Yes (sbo years ago) Appendectomy: No Cardiac Surgery: No Cholecystectomy: No Lung Surgery: No Neurologic Surgery: Yes (KYPHOPLASTY X 3) Orthopedic Surgery: Yes (L. Hip replacement pinning/plate) - Suicide/Smoking/Psychosocial Hx Smoking History: Never smoked Have you smoked in the past 12 months: No Number of Cigarettes Smoked Daily: 10 If you are a former smoker, when did you quit?: 2014 'Breaking Loose' booklet given: 09/13/13 Hx Alcohol Use: No Drug/Substance Use Hx: No Substance Use Type: None Hx Substance Use Treatment: No Review of Systems - Review of Systems Able to Perform ROS?: Yes Is the patient limited Czech proficient: No Constitutional: No: Symptoms Reported HEENTM: No: Symptoms Reported Respiratory: No: Symptoms reported Cardiac (ROS): No: Symptoms Reported ABD/GI: No: Symptoms Reported Integumentary: No: Symptoms Reported Neurological: No: Symptoms reported All Other Systems: Reviewed and Negative *Physical Exam - Vital Signs Last Vital Signs Temp Pulse Resp BP Pulse Ox 98.2 F 62 18 195/69 H 96 12/16/18 12:00 12/16/18 12:00 12/16/18 12:00 12/16/18 12:00 12/16/18 12:00 - Physical Exam General Appearance: Yes: Nourished, Appropriately Dressed. No: Apparent Distress HEENT: positive: EOMI, DESTINI, Normal ENT Inspection Respiratory/Chest: positive: Lungs Clear, Normal Breath Sounds. negative: Chest Tender, Respiratory Distress Cardiovascular: positive: Regular Rhythm, Regular Rate, S1, S2 Gastrointestinal/Abdominal: positive: Normal Bowel Sounds, Flat, Soft. negative : Tender Musculoskeletal: positive: Normal Inspection. negative: CVA Tenderness Extremity: positive: Normal Capillary Refill, Normal Inspection, Normal Range of Motion Integumentary: positive: Normal Color, Dry, Warm Neurologic: positive: Fully Oriented, Alert, Normal Mood/Affect, Normal Response , Motor Strength 5/5 ED Treatment Course - LABORATORY CBC & Chemistry Diagram: 12/16/18 13:30 12/16/18 13:30 - ADDITIONAL ORDERS Additional order review: Laboratory Results 12/16/18 13:30 Sodium 141 Potassium 3.2 L Chloride 95 L Carbon Dioxide 41 H Anion Gap 5 L BUN 6.6 L Creatinine 0.6 Est GFR (CKD-EPI)AfAm 94.32 Est GFR (CKD-EPI)NonAf 81.38 Random Glucose 166 H Calcium 8.7 Magnesium 1.8 Total Bilirubin 0.3 AST 28 ALT 16 Alkaline Phosphatase 87 Total Protein 6.9 Albumin 3.0 L 12/16/18 13:30 RBC 3.82 MCV 82.8 MCHC 32.5 RDW 19.1 H MPV 8.2 D Neutrophils % 82.8 Lymphocytes % 10.9 D Monocytes % 5.7 Eosinophils % 0.1 Basophils % 0.5 - Medications Given in the ED: ED Medications Discontinued Medications Generic Name Dose Route Start Last Admin Trade Name Freq PRN Reason Stop Dose Admin Potassium Chloride 40 meq 12/16/18 13:20 12/16/18 13:54 K-Dur - PO 12/16/18 13:21 40 meq ONCE ONE Administration Medical Decision Making - Medical Decision Making 12/16/18 22:40 88f sent from urgent care for hypokalemia. EKG unchanged from baseline, no T-wave flattening or U-waves. Patient given 40mg PO Potassium. Serum potassium here: 3.2 Patient didn't take her oral pain meds today, giving her 1 Percocet. OK to discharge with follow up with PCP in 1-2 days. *DC/Admit/Observation/Transfer Diagnosis at time of Disposition: Hypokalemia - Discharge Dispostion Disposition: HOME Condition at time of disposition: Improved Decision to Admit order: No - Referrals Referrals: Bridget Cuellar [Primary Care Provider] - - Patient Instructions Printed Discharge Instructions: DI for Hypokalemia Additional Instructions: Come back to the emergency department for any new, worsening or concerning symptom. Follow up with your primary care physician within the next 3 days. - Post Discharge Activity
--- NOTE | 2018-12-16 16:54 | PDOC ---
Documentation entered by Jose Christopher SCRIBE, acting as scribe for Ayleen Whitlock MD. Ayleen Whitlock MD: This documentation has been prepared by the Ashwin higgins Elijah, SCRIBE, under my direction and personally reviewed by me in its entirety. I confirm that the documentation accurately reflects all work, treatment, procedures, and medical decision making performed by me. Attending Attestation - Resident Resident Name: Cesar Solitario - ED Attending Attestation I have performed the following: I have examined & evaluated the patient, The case was reviewed & discussed with the resident, I agree w/resident's findings & plan - HPI HPI: 12/16/18 14:22 Patient is an 88 year old female with a significant past medical history of Arthritis, HTN, HLD, multiple compression fractures of lumbar/sacral spine, chronic back pain, pancreatic ulcers who presents to the ED with hypokalemia. Patient reports that she called her PCP, who prescribed he Cipro in order to resolve an UTI. Patient took a single dose of the Cipro this morning and began to have her extremities begin to flail. The patient then went to urgent care, was found to be hypolalemic and was told to come into the ED. Allergies: Penicillins, Fentanyl Patch PCP: Dr. Wright - Physicial Exam PE: 12/16/18 14:34 CONSTITUTIONAL: Well-appearing; well-nourished; in no apparent distress HEAD: Normocephalic; atraumatic EYES: PERRL; EOM intact ENMT: External appears normal; normal oropharynx NECK: +severe kyphosis; non-tender; CARD: Normal S1, S2; no murmurs, rubs, or gallops RESP: Normal chest excursion with respiration; breath sounds clear and equal bilaterally; no wheezes, rhonchi, or rales ABD: Soft, non-distended; non-tender; no palpable organomegaly, no palpable hernias EXT: Normal ROM in all four extremities; non-tender to palpation; distal pulses intact SKIN: Warm, dry, no rash NEURO: No focal neurological deficiencies. - Medical Decision Making 12/16/18 14:39 88 y/o female history of osteoporosis,kyphosis,neuropathy on oxycodone for chronic back pain went [place] [facility] [place] due to shaking and leg weakness . Pt had labs done and was noted to have severe hypokalemia and was referred to ED for further treatment. Pt's potassium on labs here in ED was 3.2. Pt was treated with kcl 40 mek and pt is stable for dc home 12/16/18 15:13
--- NOTE | 2018-12-17 11:45 | EKG ---
Test Reason : Blood Pressure : / mmHG Vent. Rate : 083 BPM Atrial Rate : 083 BPM P-R Int : 084 ms QRS Dur : 166 ms QT Int : 454 ms P-R-T Axes : 000 -71 026 degrees QTc Int : 533 ms SINUS RHYTHM WITH SHORT VA RIGHT BUNDLE BRANCH BLOCK LEFT ANTERIOR FASCICULAR BLOCK BIFASCICULAR BLOCK MINIMAL VOLTAGE CRITERIA FOR LVH, MAY BE NORMAL VARIANT T WAVE ABNORMALITY, CONSIDER INFERIOR ISCHEMIA ABNORMAL ECG WHEN COMPARED WITH ECG OF 24-FEB-2017 12:29, VA INTERVAL HAS DECREASED Confirmed by VINNIE KASPER, TANYA ([id number]) on 12/17/2018 11:44:59 AM Referred By: Confirmed By:TANYA BIRMINGHAM MD
== END 2018-12-16 17:13 | disposition home or self-care (01) ==
LOC: JER 11:58
DX: E87.6 Hypokalemia (principal); I10 Essential (primary) hypertension; E78.00 Pure hypercholesterolemia, unspecified; M12.9 Arthropathy, unspecified; Z87.440 Personal history of urinary (tract) infections; M54.5 Low back pain; G89.29 Other chronic pain; Z87.19 Personal history of other diseases of the digestive system
CPT/HCPCS: 36415; 80053; 83735; 85025; 93005; 93010; 99282-25